=== PATIENT | female | born 1950 ===

== ENCOUNTER 2017-09-01 22:30 | Emergency (ER) | payer MEDICARE ==
[2017-09-01 22:30] VITALS: BMI 32.5
--- NOTE | 2017-09-01 23:49 | C.PDOC ---
History Of Present Illness 67 year old female presents to the ED c/o cough, fever, chills and post tussive chest pain associated with a fever that started yesterday. Patient has a history of right mastectomy and recent biopsy of her left lung. Patient is speaking in complete sentences, denies any nausea, vomit, diarrhea, abdominal pain, recent travel. Time Seen by Provider: 09/01/17 23:49 Chief Complaint (Nursing): Chest Pain History Per: Patient History/Exam Limitations: no limitations Onset/Duration Of Symptoms: Days Current Symptoms Are (Timing): Still Present Context: Other Severity: Moderate Pain Scale Rating Of: 4 Quality: Dull Associated Symptoms: denies: Nausea Modifying Factors: None Exacerbating Factors: None Alleviating Factors: None Recent travel outside of the [place]: No Additional History Per: Patient Past Medical History Reviewed: Historical Data, Nursing Documentation, Vital Signs Vital Signs: Last Vital Signs Temp 98.8 F 09/02/17 02:21 Pulse 79 09/02/17 03:05 Resp 16 09/02/17 03:05 BP 129/69 09/02/17 03:05 Pulse Ox 96 09/02/17 03:05 - Medical History PMH: HTN Denies: Arthritis, CHF, COPD, Hypercholesterolemia, Hypothyroidism, Chronic Kidney Disease, Rheumatoid Arthritis Surgical History: Appendectomy - [facility] Procedures APPL/ADMIN OF AN ADHESION BARRIER SUBSTANCE (02/24/14) C.A.T. SCAN OF THORAX (02/09/14) CLOSED [PERCUTANEOUS] [NEEDLE] BIOPSY OF LUNG (02/09/14) DESTROY LOC LUNG LES NEC (02/24/14) EXCISION OF RIGHT HIP JOINT, OPEN APPROACH (10/20/15) FIBER-OPTIC BRONCHOSCOPY (02/24/14) INJECT STEROID (03/04/15) INJECTION INTO JOINT (04/21/15) RADICAL EXCIS SKIN LES (01/04/15) REPLACEMENT OF RIGHT HIP JOINT WITH SYNTH SUB, OPEN APPROACH (10/20/15) SIMP EXC LYMPH STRUC NEC (02/24/14) TRANSFUSE NONAUT RED BLOOD CELLS IN PERIPH VEIN, PERC (10/20/15) X-RAY NEC AND NOS (04/21/15) Family History: States: Unknown Family Hx - Social History Hx Alcohol Use: No Hx Substance Use: No Review Of Systems Constitutional: Positive for: Fever, Chills Cardiovascular: Positive for: Chest Pain Respiratory: Positive for: Cough Gastrointestinal: Negative for: Nausea, Vomiting, Abdominal Pain Genitourinary: Negative for: Dysuria Musculoskeletal: Negative for: Back Pain Skin: Negative for: Rash Neurological: Negative for: Weakness, Numbness, Headache Psych: Negative for: Anxiety Physical Exam - Physical Exam Appears: Non-toxic, No Acute Distress Skin: Warm, Dry Head: Normacephalic Eye(s): bilateral: Normal Inspection Nose: No Discharge, No Deformity Oral Mucosa: Moist Neck: Normal ROM, Supple Chest: Symmetrical, Other (right mastectomy scar) Cardiovascular: Rhythm Regular, No Murmur Respiratory: No Rales, Rhonchi (B/L scattered), No Wheezing Gastrointestinal/Abdominal: Soft, No Tenderness, No Guarding, No Rebound Back: Normal Inspection Extremity: No Tenderness, No Deformity, No Swelling Extremity: Bilateral: Atraumatic Neurological/Psych: Oriented x3, Normal Speech Gait: Steady ED Course And Treatment - Laboratory Results Result Diagrams: 09/02/17 00:48 09/02/17 00:48 O2 Sat by Pulse Oximetry: 96 (On RA) Pulse Ox Interpretation: Normal Progress Note: Plan: -VBG. -CT chest. -EKG. -IV fluids. -Blood culture. - Influenza A B. -UA Reevaluation Time: 03:05 Reassessment Condition: Improved Disposition Counseled Patient/Family Regarding: Studies Performed, Diagnosis, Need For Followup - Disposition Referrals: Berhane Duggan MD [Staff Provider] - Disposition: HOME/ ROUTINE Disposition Time: 23:49 Condition: FAIR Additional Instructions: Please return if symptoms recur Prescriptions: Azithromycin [Zithromax Tri-Sabas] 500 mg PO DAILY #3 tab Benzonatate [Tessalon Perles] 100 mg PO TID PRN #20 sgl PRN Reason: Cough Oseltamivir Phosphate [Tamiflu] 75 mg PO BID #10 capsule Instructions: Upper Respiratory Infection (ED) Forms: [facility] (Nicaraguan) - Clinical Impression Clinical Impression: URI (upper respiratory infection) - Scribe Statement The provider has reviewed the documentation as recorded by the Scribe Braden Zelaya All medical record entries made by the Scribe were at my direction and personally dictated by me. I have reviewed the chart and agree that the record accurately reflects my personal performance of the history, physical exam, medical decision making, and the department course for this patient. I have also personally directed, reviewed, and agree with the discharge instructions and disposition.
[2017-09-02] MEDS ORDERED: Sodium Chloride 0.9% 1,000 ML IV SCH (00:30)
[2017-09-02 00:45] LABS: VENOUS BLOOD GAS BASE EXCESS 10.5 mmol/L (0.0-2.0); VENOUS BLOOD GAS PCO2 45 mmHg (40-60); VENOUS BLOOD GAS PO2 48 mm/Hg (30-55)
[2017-09-02] MEDS ORDERED: Sodium Chloride 0.9% 1,000 ML ONE (00:46)
[2017-09-02 00:51] LABS: BASO % 0.5 % (0.0-2.0); EOS % 0.4 % (0.0-4.0); HEMOGLOBIN 12.3 g/dL (11.0-16.0); LYMPH # 1.3 K/uL (1.0-4.3); LYMPH % 20.1 % (20.0-40.0); MEAN CELL VOLUME 86.5 fL (81.0-99.0); MEAN CORPUSCULAR HEMOGLOBIN 29.4 pg (27.0-31.0); MEAN PLATELET VOLUME 8.3 fL (7.2-11.7); MONO # 0.4 K/uL (0.0-0.8); MONO % 6.7 % (0.0-10.0); NEUT # 4.6 K/uL (1.8-7.0); NEUT % 72.3 % (50.0-75.0); NRBC % 0.1 % (0.0-2.0); RBC 4.17 Mil/uL (3.80-5.20); WHITE BLOOD COUNT 6.4 K/uL (4.8-10.8)
[2017-09-02 00:59] LABS: SQUAMOUS EPITHIAL 4 /hpf (0-5); URINE BILIRUBIN NEGATIVE (NEGATIVE); URINE BLOOD 1+ (NEGATIVE); URINE CLARITY Hazy (Clear); URINE COLOR Yellow (YELLOW); URINE GLUCOSE (UA) NORMAL (Normal); URINE LEUKOCYTE ESTERASE NEG Leu/uL (Negative); URINE NITRATE NEGATIVE (NEGATIVE); URINE PROTEIN NEGATIVE (NEGATIVE); URINE UROBILINOGEN NORMAL mg/dL (0.2-1.0)
[2017-09-02 01:05] LABS: ALBUMIN 3.7 g/dL (3.5-5.0); CALCIUM 8.7 mg/dl (8.6-10.4)
[2017-09-02 01:07] LABS: INR 1.1; PROTHROMBIN TIME 11.8 SECONDS (9.7-12.2)
[2017-09-02 01:48] VITALS: RESP 16
[2017-09-02 02:21] VITALS: TEMP 98.8
[2017-09-02] MEDS ORDERED: Potassium Chloride 10 mEq ER Tab PO STA (02:30)
--- NOTE | 2017-09-02 02:30 | CT ---
EXAM: CT Chest Without Intravenous Contrast EXAM DATE/TIME: 09/02/2017 12:22 AM CLINICAL HISTORY: 67 years old, female; Signs and symptoms; Cough; Symptoms not specified; Prior surgery; Surgery date: 6+ months; Surgery type: Right mastectomy; Additional info: R mastectomy, S/P bx l lung, cough, cp TECHNIQUE: Axial computed tomography images of the chest without intravenous contrast. All CT scans at this facility use one or more dose reduction techniques, viz.: automated exposure control; ma/kV adjustment per patient size (including targeted exams where dose is matched to indication; i.e. head); or iterative reconstruction technique. Coronal and sagittal reformatted images were created and reviewed. COMPARISON: CR - CHEST TWO VIEWS (PA/LAT) 2015-10-11 10:59 FINDINGS: Status post right mastectomy. There is a 2.1 x 3.1 cm pleural-based mass in the right lower lung incompletely characterized secondary to lack of intravenous contrast. There is a lobulated 10 x 7 mm nodule in the right upper lung image 21 as well as a lobulated 10 x 9 mm left lower lung nodule. There is a cluster of micronodules in the anterior right upper lung image 56. Linear consolidation in the right upper lung suggestive of scarring or platelike atelectasis. No aortic aneurysm. No pleural or pericardial effussions. Hypoattenuating hepatic lesions incompletely imaged and incompletely characterized on this study. There is a 2 cm cystic mass in the pancreatic body. Per prior report, this lesion has been biopsied. Left parapelvic cyst versus fullness of collecting system. Evaluation is limited. IMPRESSION: Right lower lung pleural based mass. Lobulated nodules right upper lung and left lower lung. I would first recommend correlation with prior study (not provided) before recommendations made with regards to followup imaging and/or biopsy. Cluster of micronodules right midlung that could be chronic versus representing a developing infectious or inflammatory process.
[2017-09-02] MEDS ORDERED: Potassium Chloride 20 mEq ER Tab PO ONE (02:37)
[2017-09-02 02:45] VITALS: O2SAT 96
[2017-09-02 03:05] VITALS: BP 129/69; PULSE 79
--- NOTE | 2017-09-03 14:35 | CARD ---
APPROVED REPORT EKG Measurement Heart [id number] <Conclusion> Normal sinus rhythm Nonspecific ST abnormality Abnormal ECG
== END 2017-09-02 03:26 | disposition home or self-care (01) ==
LOC: C.ER 22:30
DX: J06.9 Acute upper respiratory infection, unspecified (principal); E87.6 Hypokalemia
CPT/HCPCS: 71250; 80053; 81001; 82803; 85025; 85610; 85730; 87040; 87804; 93005; 99285; J7040

== ENCOUNTER 2018-05-01 11:02 | Inpatient (IN) | payer MEDICARE ==
[2018-05-01 11:02] VITALS: BMI 32.5
[2018-05-01] MEDS ORDERED: Sodium Chloride 0.9% 1,000 ML IV ONE (11:47)
[2018-05-01 12:02] LABS: BASO % 0.5 % (0.0-2.0); EOS % 0.7 % (0.0-4.0); LYMPH # 0.8 K/uL (1.0-4.3); LYMPH % 13.1 % (20.0-40.0); MEAN CORPUSCULAR HGB CONC 33.5 g/dL (33.0-37.0); MEAN PLATELET VOLUME 7.7 fL (7.2-11.7); MONO # 0.5 K/uL (0.0-0.8); MONO % 8.8 % (0.0-10.0); NEUT # 4.6 K/uL (1.8-7.0); NEUT % 76.9 % (50.0-75.0); NRBC % 0.4 % (0.0-2.0); RBC 2.96 Mil/uL (3.80-5.20); RED CELL DISTRIBUTION WIDTH 19.1 % (11.5-14.5)
[2018-05-01 12:04] LABS: HEMOGLOBIN 8.9 g/dL (11.0-16.0); MEAN CELL VOLUME 89.6 fL (81.0-99.0)
[2018-05-01 12:20] LABS: ALB/GLOB RATIO 1.3 (1.0-2.1); ALBUMIN 3.7 g/dL (3.5-5.0); CALCIUM 9.4 mg/dl (8.6-10.4)
--- NOTE | 2018-05-01 12:22 | C.PDOC ---
History Of Present Illness 67 year old female, whose PMHx includes metastatic lung cancer, presents to the ED after being referred by her graphic engineer/oncologist for admission. Patient underwent her most recent chemotherapy session one week ago and was found to have elevated renal function and was referred for admission. She denies fever, chills, or any other symptoms at this time. Time Seen by Provider: 05/01/18 11:32 Chief Complaint (Nursing): Medical Clearance History Per: Patient History/Exam Limitations: no limitations Onset/Duration Of Symptoms: Days Current Symptoms Are (Timing): Still Present Severity: Mild Additional History Per: Patient Past Medical History Reviewed: Historical Data, Nursing Documentation, Vital Signs Vital Signs: Last Vital Signs Temp 99.1 F 05/01/18 11:23 Pulse 89 05/01/18 11:23 Resp 17 05/01/18 11:23 BP 104/70 05/01/18 11:23 Pulse Ox 96 05/01/18 11:23 - Medical History PMH: HTN Denies: Chronic Kidney Disease, Rheumatoid Arthritis Surgical History: Appendectomy - [facility] Procedures APPL/ADMIN OF AN ADHESION BARRIER SUBSTANCE (02/24/14) C.A.T. SCAN OF THORAX (02/09/14) CLOSED [PERCUTANEOUS] [NEEDLE] BIOPSY OF LUNG (02/09/14) DESTROY LOC LUNG LES NEC (02/24/14) EXCISION OF RIGHT HIP JOINT, OPEN APPROACH (10/20/15) FIBER-OPTIC BRONCHOSCOPY (02/24/14) INJECT STEROID (03/04/15) INJECTION INTO JOINT (04/21/15) RADICAL EXCIS SKIN LES (01/04/15) REPLACEMENT OF RIGHT HIP JOINT WITH SYNTH SUB, OPEN APPROACH (10/20/15) SIMP EXC LYMPH STRUC NEC (02/24/14) TRANSFUSE NONAUT RED BLOOD CELLS IN PERIPH VEIN, PERC (10/20/15) X-RAY NEC AND NOS (04/21/15) Family History: States: Unknown Family Hx - Social History Hx Alcohol Use: No Hx Substance Use: No - Immunization History Hx Tetanus Toxoid Vaccination: No Hx Influenza Vaccination: Yes Hx Pneumococcal Vaccination: Yes Review Of Systems Constitutional: Negative for: Fever, Chills Respiratory: Negative for: Shortness of Breath Neurological: Positive for: Weakness Physical Exam - Physical Exam Appears: Non-toxic, No Acute Distress Skin: Normal Color, Warm, Dry Head: Atraumatic, Normacephalic Eye(s): bilateral: Normal Inspection Oral Mucosa: Moist Neck: Supple Chest: Symmetrical, No Deformity, No Tenderness Cardiovascular: Rhythm Regular, No Murmur Respiratory: Normal Breath Sounds, No Rales, No Rhonchi, No Wheezing Extremity: Normal ROM, Capillary Refill (less than 2 seconds ) Neurological/Psych: Oriented x3, Normal Speech, Normal Cognition Gait: Steady ED Course And Treatment - Laboratory Results Result Diagrams: 05/01/18 11:57 05/01/18 11:57 Lab Interpretation: No Acute Changes O2 Sat by Pulse Oximetry: 96 (on RA) Pulse Ox Interpretation: Normal - Other Rad No standard instances X-Ray: Viewed By Me, Read By Radiologist Interpretation: FINDINGS: LUNGS: Right MediPort in situ by an apparent int ernal jugular approach with the tip terminating at the region of the distal superior cava. Limited linear atelectasis or fibrosis seen in the interval at the left base with no alveolitis bilaterally. Rounded density at the right base may reflect pulmonary or pleural mass. Clinically correlate further. Follow-up chest CT recommended. Postoperative change identified right apex. PLEURA: No significant pleural effusion identified. No pneumothorax apparent. CARDIOVASCULAR: Normal. OSSEOUS STRUCTURES: No significant abnormalities. VISUALIZED UPPER ABDOMEN: Normal. OTHER FINDINGS: None. IMPRESSION: Limited linear atelectasis left base with rounded mass questioned at lateral right s ubpleural space. Consider follow-up chest 2 contrast for added characterization. Postop changes right apex. Progress Note: Bloodwork, urinalysis, CXR ordered and reviewed. IV Fluids given. Reassessment Condition: Unchanged - Physician Consult Information Physician Contacted: Britany Gallego Outcome Of Conversation: admit Disposition Discussed With : Britany Gallego Doctor Will See Patient In The: Hospital Counseled Patient/Family Regarding: Studies Performed, Diagnosis - Disposition Disposition: HOSPITALIZED Disposition Time: 14:00 Condition: STABLE - POA Present On Arrival: None - Clinical Impression Clinical Impression: Hx of breast cancer, Renal failure (ARF), acute on chronic - PA / HEAVY MACHINERY OPERATOR / Resident Statement MD/DO has reviewed & agrees with the documentation as recorded. - Scribe Statement The provider has reviewed the documentation as recorded by the Scribe (Camille Jacome) All medical record entries made by the Scribe were at my direction and personally dictated by me. I have reviewed the chart and agree that the record accurately reflects my personal performance of the history, physical exam, medical decision making, and the department course for this patient. I have also personally directed, reviewed, and agree with the discharge instructions and disposition. Decision To Admit - Pt Status Changed To: Hospital Disposition Of: Inpatient - Admit Certification Admit to Inpatient:: After my assessment, the patient will require hospitalization for at least two midnights. This is because of the severity of symptoms shown, intensity of services needed, and/or the medical risk in this patient being treated as an outpatient. - InPatient: Physician Admission Certification: I certify that this patient requires 2 or more midnights of care for the following reason:: Renal Failure. Ca Lung - . Bed Request Type: Regular Admitting Physician: Britany Gallego Patient Diagnosis: Hx of breast cancer, Renal failure (ARF), acute on chronic
--- NOTE | 2018-05-01 12:23 | RAD ---
Date of service: 05/01/2018 HISTORY: SOB COMPARISON: Chest radiograph 05/03/2016. TECHNIQUE: Chest PA and lateral FINDINGS: LUNGS: Right MediPort in situ by an apparent internal jugular approach with the tip terminating at the region of the distal superior cava. Limited linear atelectasis or fibrosis seen in the interval at the left base with no alveolitis bilaterally. Rounded density at the right base may reflect pulmonary or pleural mass. Clinically correlate further. Follow-up chest CT recommended. Postoperative change identified right apex. PLEURA: No significant pleural effusion identified. No pneumothorax apparent. CARDIOVASCULAR: Normal. OSSEOUS STRUCTURES: No significant abnormalities. VISUALIZED UPPER ABDOMEN: Normal. OTHER FINDINGS: None. IMPRESSION: Limited linear atelectasis left base with rounded mass questioned at lateral right subpleural space. Consider follow-up chest 2 contrast for added characterization. Postop changes right apex.
[2018-05-01 13:05] LABS: SQUAMOUS EPITHIAL 29 /hpf (0-5); URINE BACTERIA OCC (<OCC); URINE BILIRUBIN NEGATIVE (NEGATIVE); URINE BLOOD NEGATIVE (NEGATIVE); URINE CLARITY Hazy (Clear); URINE COLOR Yellow (YELLOW); URINE GLUCOSE (UA) NORMAL (Normal); URINE LEUKOCYTE ESTERASE 3+ Leu/uL (Negative); URINE PROTEIN NEGATIVE (NEGATIVE); URINE UROBILINOGEN NORMAL mg/dL (0.2-1.0)
--- NOTE | 2018-05-01 14:32 | CP.PCM.HP ---
<Lionel Calero - Last Filed: 05/01/18 20:11> History of Present Illness - History of Present Illness History of Present Illness: Lionel Calero PGY-1, H&P for hospitalist CC: sent in by heme/onc for SAGE This is a 67 year old Dutch-speaking female with PMH of PE (on Xarelto 20 mg PO daily), stage 4 breast cancer with mets to the lung, HTN, DM who was sent to the hospital for admission for worsening SAGE noted on outpatient labs. Pt is a poor historian. Pt reports that she has had increased urinary frequency for the past 2 days described as 4-5 times per day. Pt also reports dry cough with shortness of breath on exertion, described as needing to stop and catch her breath after walking 2 blocks. Pt also reports decreased po intake recently, described as decreased appetite. Pt states that she had a temperature of 100.1 and 100.3 on Sunday and Sunday, respectively, which responded to Tylenol. Pt denies chills, chest pain, pleuritic chest pain, abdominal pain, n/v/d, dysuriaor burning sensation, new numbness or tingling (pt has tingling of lower extremities due to chemotherapy), back pain, hematuria, hematochezia, melena, sick contacts. PMD: Berhane Duggan Heme/Onc: Usha Duggan As per Heme/Onc, pt had Cr increase to 1.2 on 04/23 with Cr of 3.5 yesterday (04/30). Pt has been having anemia (low 8s, high 9s for the past few weeks. Cancer hx: Pt diagnosed with Her2+ ER+ breast cancer in 1994, and was treated with right sided mastectomy and chemotherapy. In remission for 20 years. Diagnosed with lung nodule, which was biopsied and showed Her2+, ER+ breast ca. Pt is on Trastuzumab, Pertuzumab and Taxol. Last had taxol on 04/18, not given last week due to low grade fevers. PMH: PMH of PE (on Xarelto 20 mg PO daily), HTN, DM, stage 4 breast cancer with mets to the lung (Her2+, ER+) PSH: Right breast mastectomy 1994, Right lung biopsy 2-3 years ago FHx: daughter due to sarcoma in her 30s, Brother of unknown cancer Meds: Tradjenta 5mg PO QD, Dexamethasone 8 mg PO BID, Xarelto 20 mg PO daily (last dose taken today, with instructions to discontinue as per heme/onc), Losartan/HCTZ 100mg/25mg PO daily, KCl 20 meq PO daily, Atenolol 25 mg PO daily, Ondansendratn HCL 4 mg PO as needed for chemo-related nausea/vomiting, Prochlor 10 mg PO as needed, Lorazepam 0.5 mg PO as need, Loperamide 2 mg PO as needed. Allx: see SEP. However, none as per pt. Social hx: denies history of tobacco use, denies history of etoh use, denies illicit drug. 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 Present on Admission - Present on Admission Any Indicators Present on Admission: Yes History of DVT/PE: Yes Review of Systems - Review of Systems All systems: reviewed and no additional remarkable complaints except (as per HPI) Past Patient History - Infectious Disease Hx of Infectious Diseases: None - Tetanus Immunizations Tetanus Immunization: Unknown - Past Medical History & Family History Past Medical History?: Yes - Past Social History Smoking Status: Never Smoked - CARDIAC Hx Congestive Heart Failure: No Hx Hypercholesterolemia: No Hx Hypertension: Yes - PULMONARY Hx Chronic Obstructive Pulmonary Disease (COPD): No - NEUROLOGICAL Hx Neurological Disorder: No HX Cerebrovascular Accident: No - HEENT Hx HEENT Problems: No - RENAL Hx Chronic Kidney Disease: No - ENDOCRINE/METABOLIC Hx Hypothyroidism: No - HEMATOLOGICAL/ONCOLOGICAL Hx Blood Disorders: Yes Hx Blood Transfusions: Yes (POST OP 20 YRS AGO ) Hx Blood Transfusion Reaction: No Hx Cancer: Yes (BREAST CA) Hx Chemotherapy: Yes Hx Metastesis: Yes Other/Comment: LUNG CANCER - INTEGUMENTARY Hx Dermatological Problems: No - MUSCULOSKELETAL/RHEUMATOLOGICAL Hx Arthritis: No Hx Rheumatoid Arthritis: No - GASTROINTESTINAL Hx Gastrointestinal Disorders: No - GENITOURINARY/GYNECOLOGICAL Hx Genitourinary Disorders: No - PSYCHIATRIC Hx Substance Use: No - SURGICAL HISTORY Hx Appendectomy: Yes - ANESTHESIA Hx Anesthesia: Yes Hx Anesthesia Reactions: No Hx Malignant Hyperthermia: No Meds Allergies/Adverse Reactions: Allergies Allergy/AdvReac Type Severity Reaction Status Date / Time silver Allergy RASH Verified 05/01/18 11:28 [From Tegaderm AG Mesh] iodixanol [From Visipaque] AdvReac RASH Verified 05/01/18 11:28 chlora Allergy Intermediate RASH Uncoded 05/01/18 11:28 contrast Allergy RASH Uncoded 05/01/18 11:28 Physical Exam - Constitutional Appears: Non-toxic, No Acute Distress - Head Exam Head Exam: NORMAL INSPECTION (hairless due to chemotherapy/cutting), NORMOCEPHALIC - Eye Exam Eye Exam: EOMI, Normal appearance Additional comments: (+) conjunctival pallor - ENT Exam ENT Exam: Mucous Membranes Moist, Normal Exam - Neck Exam Neck exam: Positive for: Normal Inspection - Respiratory Exam Respiratory Exam: Clear to Auscultation Bilateral, NORMAL BREATHING PATTERN. absent: Rales, Rhonchi, Wheezes, Respiratory Distress - Cardiovascular Exam Cardiovascular Exam: REGULAR RHYTHM, +S1, +S2 - GI/Abdominal Exam GI & Abdominal Exam: Normal Bowel Sounds, Soft. absent: Diminished Bowel Sounds, Distended, Firm, Guarding, Tenderness - Extremities Exam Extremities exam: Positive for: normal capillary refill, normal inspection, pedal edema (trace nonpitting edema), pedal pulses present. Negative for: calf tenderness, tenderness - Back Exam Back exam: NORMAL INSPECTION. absent: CVA tenderness (L), CVA tenderness (R) - Neurological Exam Neurological exam: Alert, CN II-XII Intact, Normal Gait, Oriented x3 - Psychiatric Exam Psychiatric exam: Normal Affect, Normal Mood - Skin Skin Exam: Dry, Normal Color, Warm Results - Vital Signs Recent Vital Signs: Last Vital Signs Temp 99.1 F 05/01/18 11:23 Pulse 89 05/01/18 11:23 Resp 17 05/01/18 11:23 BP 104/70 05/01/18 11:23 Pulse Ox 96 05/01/18 12:25 - Labs Result Diagrams: 05/01/18 16:59 05/01/18 11:57 Labs: Laboratory Results - last 24 hr 05/01/18 05/01/18 05/01/18 11:57 11:57 12:43 WBC 6.0 RBC 2.96 L Hgb 8.9 L D Hct 26.5 L MCV 89.6 D MCH 30.0 MCHC 33.5 RDW 19.1 H Plt Count 294 MPV 7.7 Neut % (Auto) 76.9 H Lymph % (Auto) 13.1 L [place] % (Auto) 8.8 Eos % (Auto) 0.7 Baso % (Auto) 0.5 Neut # (Auto) 4.6 Lymph # (Auto) 0.8 L [place] # (Auto) 0.5 Eos # (Auto) 0.0 Baso # (Auto) 0.0 Sodium 138 Potassium 4.2 Chloride 98 Carbon Dioxide 25 Anion Gap 19 BUN 36 H Creatinine 4.4 H Est GFR ( Amer) 12 Est GFR (Non-Af Amer) 10 Random Glucose 131 H Calcium 9.4 Total Bilirubin 0.6 AST 22 ALT 26 Alkaline Phosphatase 61 Total Protein 6.7 Albumin 3.7 Globulin 3.0 Albumin/Globulin Ratio 1.3 Urine Color Yellow Urine Clarity Hazy Urine pH 5.0 Ur Specific [place] 1.006 Urine Protein Negative Urine Glucose (UA) Normal Urine Ketones Negative Urine Blood Negative Urine Nitrate Negative Urine Bilirubin Negative Urine Urobilinogen Normal Ur Leukocyte Esterase 3+ H Urine WBC (Auto) 32 H Urine RBC (Auto) 9 H Ur Squamous Epith Cells 29 H Urine Bacteria Occ H Assessment & Plan - Assessment and Plan (Free Text) Assessment: This is a 67 year old Dutch-speaking female with PMH of PE (on Xarelto 20 mg PO daily), stage 4 breast cancer with mets to the lung, HTN, DM who was sent to the hospital for admission for worsening SAGE noted on outpatient labs. Noted to have UTI while outpatient, pt complaining of urinary frequency with low grade fevers. Plan: SAGE - Creatinine noted to be 4.4 - NS IVF at 100 - avoid nephrotoxic medications wherever possible - hold home losartan/HCTZ 100/25 mg PO daily, and concomitant hold KCl 20 meq - f/u urine creatinine, sodium - f/u bence nj protein, immunofixation proteins - f/u nephrology, Dr. Kim, recs UTI - UA shows UTI, but contamination is likely - f/u repeat clean catch UA, Urine culture and sensitivity - renally dose Rocephin 1 g IVPB daily Low grade fevers - f/u Blood culture x 2, sputum culture, urine culture - pt already on rocephin Normocytic Anemia - pt has had hgb in high 8s and low 9s as per pt's heme/onc - Hgb is 8.9 x 2 (5 hours apart) - f/u iron, ferritin, TIBC, %sat, folate - FOBT x2 - no indication for transfusion at this time - f/u CBC in am Stage 4 breast cancer with mets to the lung - f/u heme/onc recs as per Dr. Duggan - CXR shows limited linear atelectasis left base with rounded mass questioned at lateral right subpleural space. Postop changes to right apex. - continue home decadron 8 mg PO BID Hx of Hypertension - continue home Atenolol 25 mg PO daily - hold Losatran/HTCZ due to renal injury Hx of pumonary embolism - will renally dose home Xarelto 20 mg PO daily to Xarelto 15 mg PO daily for treatment of PE PPX/Diet - SCDs, chemical VTE ppx contraindicated due to pt being on xarelto - pepcid - xarelto 15 mg PO daily - renal diet, mod carb, heart healthy Case was reviewed and discussed with attending physician, Dr. Lashonda Calero PGY-1 <Britany Gallego V - Last Filed: 05/01/18 22:50> Results - Vital Signs Recent Vital Signs: Last Vital Signs Temp 98.8 F 05/01/18 17:04 Pulse 87 05/01/18 17:04 Resp 20 05/01/18 17:04 BP 94/64 L 05/01/18 17:04 Pulse Ox 96 05/01/18 17:04 - Labs Result Diagrams: 05/01/18 16:59 05/01/18 11:57 Labs: Laboratory Results - last 24 hr 05/01/18 05/01/18 05/01/18 11:57 11:57 12:43 WBC 6.0 RBC 2.96 L Hgb 8.9 L D Hct 26.5 L MCV 89.6 D MCH 30.0 MCHC 33.5 RDW 19.1 H Plt Count 294 MPV 7.7 Neut % (Auto) 76.9 H Lymph % (Auto) 13.1 L [place] % (Auto) 8.8 Eos % (Auto) 0.7 Baso % (Auto) 0.5 Neut # (Auto) 4.6 Lymph # (Auto) 0.8 L [place] # (Auto) 0.5 Eos # (Auto) 0.0 Baso # (Auto) 0.0 Sodium 138 Potassium 4.2 Chloride 98 Carbon Dioxide 25 Anion Gap 19 BUN 36 H Creatinine 4.4 H Est GFR ( Amer) 12 Est GFR (Non-Af Amer) 10 Random Glucose 131 H Uric Acid Calcium 9.4 Iron TIBC % Saturation Ferritin Total Bilirubin 0.6 AST 22 ALT 26 Alkaline Phosphatase 61 Total Creatine Kinase Total Protein 6.7 Albumin 3.7 Globulin 3.0 Albumin/Globulin Ratio 1.3 Folate Urine Color Yellow Urine Clarity Hazy Urine pH 5.0 Ur Specific [place] 1.006 Urine Protein Negative Urine Glucose (UA) Normal Urine Ketones Negative Urine Blood Negative Urine Nitrate Negative Urine Bilirubin Negative Urine Urobilinogen Normal Ur Leukocyte Esterase 3+ H Urine WBC (Auto) 32 H Urine RBC (Auto) 9 H Ur Squamous Epith Cells 29 H Urine Bacteria Occ H Ur Random Creatinine Ur Random Sodium 05/01/18 05/01/18 05/01/18 16:59 16:59 16:59 WBC 5.1 RBC 3.00 L Hgb 8.9 L Hct 26.9 L MCV 89.6 MCH 29.6 MCHC 33.0 RDW 18.7 H Plt Count 308 MPV 7.9 Neut % (Auto) 83.7 H Lymph % (Auto) 13.9 L [place] % (Auto) 2.3 Eos % (Auto) 0.0 Baso % (Auto) 0.1 Neut # (Auto) 4.3 Lymph # (Auto) 0.7 L [place] # (Auto) 0.1 Eos # (Auto) 0.0 Baso # (Auto) 0.0 Sodium Potassium Chloride Carbon Dioxide Anion Gap BUN Creatinine Est GFR ( Amer) Est GFR (Non-Af Amer) Random Glucose Uric Acid Calcium Iron 29 L TIBC 274 % Saturation 11 L Ferritin 91.1 Total Bilirubin AST ALT Alkaline Phosphatase Total Creatine Kinase Total Protein Albumin Globulin Albumin/Globulin Ratio Folate 10.8 Urine Color Urine Clarity Urine pH Ur Specific [place] Urine Protein Urine Glucose (UA) Urine Ketones Urine Blood Urine Nitrate Urine Bilirubin Urine Urobilinogen Ur Leukocyte Esterase Urine WBC (Auto) Urine RBC (Auto) Ur Squamous Epith Cells Urine Bacteria Ur Random Creatinine Ur Random Sodium 05/01/18 05/01/18 05/01/18 18:14 21:43 21:43 WBC RBC Hgb Hct MCV MCH MCHC RDW Plt Count MPV Neut % (Auto) Lymph % (Auto) [place] % (Auto) Eos % (Auto) Baso % (Auto) Neut # (Auto) Lymph # (Auto) [place] # (Auto) Eos # (Auto) Baso # (Auto) Sodium Potassium Chloride Carbon Dioxide Anion Gap BUN Creatinine Est GFR ( Amer) Est GFR (Non-Af Amer) Random Glucose Uric Acid 9.7 H Calcium Iron TIBC % Saturation Ferritin Total Bilirubin AST ALT Alkaline Phosphatase Total Creatine Kinase 73 Total Protein Albumin Globulin Albumin/Globulin Ratio Folate Urine Color Straw Urine Clarity Clear Urine pH 5.0 Ur Specific [place] 1.004 Urine Protein Negative Urine Glucose (UA) Normal Urine Ketones Negative Urine Blood Negative Urine Nitrate Negative Urine Bilirubin Negative Urine Urobilinogen Normal Ur Leukocyte Esterase Neg Urine WBC (Auto) 3 Urine RBC (Auto) < 1 Ur Squamous Epith Cells < 1 Urine Bacteria Rare Ur Random Creatinine 55.3 Ur Random Sodium 25 Attending/Attestation - Attestation I have personally seen and examined this patient.: Yes I have fully participated in the care of the patient.: Yes I have reviewed all pertinent clinical information: Yes Notes (Text): Patient seen, examined, and case discussed with medical photographer. Discussed admitting orders with resident at time of admission. Resident has reached out to patient's heme-oncology who does not come here. Creatinine adeline from 1.2 to 3.5 yesterday and 4.0 today in the emergency room. Patient's arb/diuretic held on admission. Nephrology is on board. Will start iv fluids. Patient has been anemic recently per hematology. Patient does not any black stool nor BRBPR. Patient is on chemotherapy; last received on week ago. Patient advised to stop blood thinner by hem oncology unclear if due to renal function or not. We have renally dose Xarelto 15mg one a day. Patient had recently take Levofloxacin for outpatient symptoms of UTI and started having low grade fevers over the weekend. Will take ua, urine culture, and empiric antibiotic coverage for UTI. This is a 67 year old Dutch-speaking female with PMH of PE (on Xarelto 20 mg PO daily), stage 4 breast cancer with mets to the lung, HTN, DM who was sent to the hospital for admission for worsening SAGE noted on outpatient labs. Noted to have UTI while outpatient, pt complaining of urinary frequency with low grade fevers. Plan: SAGE - Creatinine noted to be 4.4 - NS IVF at 100 - avoid nephrotoxic medications wherever possible - hold home losartan/HCTZ 100/25 mg PO daily, and concomitant hold KCl 20 meq - f/u urine creatinine, sodium - f/u bence nj protein, immunofixation proteins - f/u nephrology, Dr. Kim, recs UTI - UA shows UTI, but contamination is likely - f/u repeat clean catch UA, Urine culture and sensitivity - renally dose Rocephin 1 g IVPB daily Low grade fevers - f/u Blood culture x 2, sputum culture, urine culture - pt already on rocephin Normocytic Anemia - pt has had hgb in high 8s and low 9s as per pt's heme/onc - Hgb is 8.9 x 2 (5 hours apart) - f/u iron, ferritin, TIBC, %sat, folate - FOBT x2 - no indication for transfusion at this time - f/u CBC in am Stage 4 breast cancer with mets to the lung - f/u heme/onc recs as per Dr. Duggan - CXR shows limited linear atelectasis left base with rounded mass questioned at lateral right subpleural space. Postop changes to right apex. - continue home decadron 8 mg PO BID Hx of Hypertension - continue home Atenolol 25 mg PO daily - hold Losatran/HTCZ due to renal injury Hx of pumonary embolism - will renally dose home Xarelto 20 mg PO daily to Xarelto 15 mg PO daily for treatment of PE PPX/Diet - SCDs, chemical VTE ppx contraindicated due to pt being on xarelto - pepcid 20mg PO daily - xarelto 15 mg PO daily - renal diet, mod carb, heart healthy
--- NOTE | 2018-05-01 16:33 | CP.PCM.CON ---
History of Present Illness - History of Present Illness History of Present Illness: Nephrology Consultation Note: Assessment: critical SAGE likely due to dehydration, pre-renal and ATN DM, HTN obesity metastatic breast CA HAGMA with superimposed metabolic alkalosis anemia Plan No acute need for renal replacement therapy at this time. Maintain hemodynamics stable. Avoid hypotension. hold ACEI/ARB due to SAGE Monitor Input/Output, daily weights and renal function with basic metabolic panel IVF as NS @ 100 ml/hr anemia management as per primary team/heme SAGE work up as ordered Dose meds/antibiotics for reduced GFR. Avoid fleets enema/magnesium based laxatives. Avoid nephrotoxins/NSAIDs/ iodinated contrast (unless needed emergently) Glycemic control Further work up for as per primary team Thanks for allowing me to participate in care of your patient. will follow with you. Please call if any Qs. had d/w team Dr Pal Kim Office: [phone] Chief Complaint; kidney problem HPI: Pt is a 67 y/o F with hx of hypertension, DM, metastatic to lung with breast CA as primary malignancy on chemotherapy (taxol, Herceptin and Pretuzomab) was sent for abnormal kidney function renal consult for SAGE abi anglin. she received chemotherapy few days ago, report ulcer on lip and lack of taste with limited oral food intake. reports 2 episode of dizziness as well. no known renal issues in past she denies chest pain, palpitation, shortness of breath, leg swelling Denies blood or bubbles in urine Denies OTC/herbal meds or NSAIDs No recent iodinated contrast exposure. Noted obvious episodes of low BP 104/70. ROS: Constitutional Symptoms: Denies fever. No chills. No Recent Weight Changes Eyes: denies change in vision, denies watery eyes, denies double vision Cardiovascular: No chest pain now There is no shortness of breath. No palpi tations. Pulmonary: No shortness of breath no cough. Gastrointestinal: no abdominal pain no nausea. No vomiting. Denies change in bowel habits. Denies Bleeding Genitourinary: No Change in force of strain when urinating. no increase in urinary frequency. No pain while urinating. Denies blood in urine. Dermatological: No Rash or Bruising has lip ulcers. All other negative Physical Examination: General Appearance: Comfortable, in no acute respiratory distress, co-operative . obese Vitals reviewed and noted as below Head; Atraumatic, normocephalic ENT: no ulcers no thrush. Tongue is midline. Oropharynx: no rash has lip ulcer. EYES: Pupils are equal, round and reactive to light accommodation. Eye muscles and extraocular movement intact. Sclera is anicteric. Neck; supple no lymphadenopathy, no thyromegaly or bruit Lungs: Normal respiratory rate/effort. Breath sounds bilateral equal and clear Heart: Normal rate. s1s2 normal. No rub or gallop. Extremities: no edema. No varicose veins Neurological: Patient is alert, awake and oriented to person, place and time. No focal deficit. Strength bilateral appropriate and equal Skin: Warm and dry. Normal turgor. No rash. Palpitation: Normal elasticity for age Abdomen: Abdomen is soft. Bowel sounds +. There is no abdominal tenderness, no guarding/rigidity no organomegaly Psych: normal insight and normal affect/mood MSK: no joint tenderness or swelling. Digits and nails normal, no deformity : kidney or bladder not palpable Labs/imaging/EKG reviewed. Past medical history, past surgical history, family history, social history, allergy reviewed and noted as below Family hx: no hx of CKD. Rest non-contributory Past Patient History - Infectious Disease Hx of Infectious Diseases: None - Tetanus Immunizations Tetanus Immunization: Unknown - Past Medical History & Family History Past Medical History?: Yes - Past Social History Smoking Status: Never Smoked - CARDIAC Hx Congestive Heart Failure: No Hx Hypercholesterolemia: No Hx Hypertension: Yes - PULMONARY Hx Chronic Obstructive Pulmonary Disease (COPD): No - NEUROLOGICAL Hx Neurological Disorder: No HX Cerebrovascular Accident: No - HEENT Hx HEENT Problems: No - RENAL Hx Chronic Kidney Disease: No - ENDOCRINE/METABOLIC Hx Hypothyroidism: No - HEMATOLOGICAL/ONCOLOGICAL Hx Blood Disorders: Yes Hx Blood Transfusions: Yes (POST OP 20 YRS AGO ) Hx Blood Transfusion Reaction: No Hx Cancer: Yes (BREAST CA) Hx Chemotherapy: Yes Hx Metastesis: Yes Other/Comment: LUNG CANCER - INTEGUMENTARY Hx Dermatological Problems: No - MUSCULOSKELETAL/RHEUMATOLOGICAL Hx Arthritis: No Hx Rheumatoid Arthritis: No - GASTROINTESTINAL Hx Gastrointestinal Disorders: No - GENITOURINARY/GYNECOLOGICAL Hx Genitourinary Disorders: No - PSYCHIATRIC Hx Substance Use: No - SURGICAL HISTORY Hx Appendectomy: Yes - ANESTHESIA Hx Anesthesia: Yes Hx Anesthesia Reactions: No Hx Malignant Hyperthermia: No Meds Allergies/Adverse Reactions: Allergies Allergy/AdvReac Type Severity Reaction Status Date / Time silver Allergy RASH Verified 05/01/18 11:28 [From Tegaderm AG Mesh] iodixanol [From Visipaque] AdvReac RASH Verified 05/01/18 11:28 chlora Allergy Intermediate RASH Uncoded 05/01/18 11:28 contrast Allergy RASH Uncoded 05/01/18 11:28 - Medications Medications: Current Medications Sodium Chloride (Sodium Chloride 0.9%) 1,000 mls @ 100 mls/hr IV .Q10H JACY Results - Vital Signs Recent Vital Signs: Last Vital Signs Temp 98.7 F 05/01/18 15:38 Pulse 86 05/01/18 15:38 Resp 18 05/01/18 15:38 BP 108/64 05/01/18 15:38 Pulse Ox 96 05/01/18 15:38 - Labs Result Diagrams: 05/01/18 11:57 05/01/18 11:57 Labs: Laboratory Results - last 24 hr 05/01/18 05/01/18 05/01/18 11:57 11:57 12:43 WBC 6.0 RBC 2.96 L Hgb 8.9 L D Hct 26.5 L MCV 89.6 D MCH 30.0 MCHC 33.5 RDW 19.1 H Plt Count 294 MPV 7.7 Neut % (Auto) 76.9 H Lymph % (Auto) 13.1 L [place] % (Auto) 8.8 Eos % (Auto) 0.7 Baso % (Auto) 0.5 Neut # (Auto) 4.6 Lymph # (Auto) 0.8 L [place] # (Auto) 0.5 Eos # (Auto) 0.0 Baso # (Auto) 0.0 Sodium 138 Potassium 4.2 Chloride 98 Carbon Dioxide 25 Anion Gap 19 BUN 36 H Creatinine 4.4 H Est GFR ( Amer) 12 Est GFR (Non-Af Amer) 10 Random Glucose 131 H Calcium 9.4 Total Bilirubin 0.6 AST 22 ALT 26 Alkaline Phosphatase 61 Total Protein 6.7 Albumin 3.7 Globulin 3.0 Albumin/Globulin Ratio 1.3 Urine Color Yellow Urine Clarity Hazy Urine pH 5.0 Ur Specific [place] 1.006 Urine Protein Negative Urine Glucose (UA) Normal Urine Ketones Negative Urine Blood Negative Urine Nitrate Negative Urine Bilirubin Negative Urine Urobilinogen Normal Ur Leukocyte Esterase 3+ H Urine WBC (Auto) 32 H Urine RBC (Auto) 9 H Ur Squamous Epith Cells 29 H Urine Bacteria Occ H
[2018-05-01 17:16] LABS: BASO % 0.1 % (0.0-2.0); HEMOGLOBIN 8.9 g/dL (11.0-16.0); LYMPH # 0.7 K/uL (1.0-4.3); LYMPH % 13.9 % (20.0-40.0); MEAN CELL VOLUME 89.6 fL (81.0-99.0); MEAN CORPUSCULAR HEMOGLOBIN 29.6 pg (27.0-31.0); MEAN PLATELET VOLUME 7.9 fL (7.2-11.7); MONO # 0.1 K/uL (0.0-0.8); MONO % 2.3 % (0.0-10.0); NEUT # 4.3 K/uL (1.8-7.0); NEUT % 83.7 % (50.0-75.0); NRBC % 0.2 % (0.0-2.0); RED CELL DISTRIBUTION WIDTH 18.7 % (11.5-14.5); WHITE BLOOD COUNT 5.1 K/uL (4.8-10.8)
[2018-05-01 18:10] LABS: FERRITIN 91.1 ng/mL
[2018-05-01 18:13] LABS: IRON 29 ug/dL (37-170)
--- NOTE | 2018-05-01 18:14 | US ---
Date of service: 05/01/2018 PROCEDURE: Renal/urinary bladder ultrasound HISTORY: renal failure COMPARISON: None. TECHNIQUE: Sonogram of the kidneys and urinary bladder. FINDINGS: RIGHT KIDNEY: Measures: 10.0 x 4.7 x 4.5 cm. No obstructing calculus or hydronephrosis identified. LEFT KIDNEY: Measures: 11.0 x 4.8 x 5.0 cm. No obstructing calculus or hydronephrosis identified. OTHER FINDINGS: Prevoid urinary bladder measures approximately 11.4 x 7.7 x 9.2 cm, calculated volume 422.5 mL. No postvoid residual volume. Incidental uterine calcifications likely related to fibroids. Small fluid within the endometrial canal. IMPRESSION: No obstructing calculus or hydronephrosis identified. Prevoid urinary bladder volume 422.5 mL. No postvoid residual volume. Incidental uterine calcifications likely related to fibroids. Small fluid within the endometrial canal.
[2018-05-01 18:23] LABS: % IRON SATURATION 11 (20-55); TOTAL IRON BINDING CAPACITY 274 ug/dL (250-450)
[2018-05-01 18:24] LABS: URIC ACID 9.7 mg/dL (2.2-7.5)
[2018-05-01 18:41] LABS: FOLATE 10.8 ng/mL
[2018-05-01 22:10] LABS: SQUAMOUS EPITHIAL < 1 /hpf (0-5); URINE BACTERIA RARE (<OCC); URINE BILIRUBIN NEGATIVE (NEGATIVE); URINE BLOOD NEGATIVE (NEGATIVE); URINE CLARITY Clear (Clear); URINE COLOR Straw (YELLOW); URINE GLUCOSE (UA) NORMAL (Normal); URINE LEUKOCYTE ESTERASE NEG Leu/uL (Negative); URINE PROTEIN NEGATIVE (NEGATIVE); URINE UROBILINOGEN NORMAL mg/dL (0.2-1.0)
[2018-05-01 22:26] LABS: CREATININE, RANDOM URINE 55.3 mg/dL
[2018-05-01] MEDS: Saccharomyces Boulardi 250 mg Cap PO SCH (23:22)
[2018-05-02] MEDS: Sodium Chloride 0.9% 1,000 ML IV SCH ×5 (01:30→21:30)
[2018-05-02 06:44] LABS: BASO % 0.4 % (0.0-2.0); EOS % 0.1 % (0.0-4.0); HEMOGLOBIN 8.2 g/dL (11.0-16.0); LYMPH # 1.2 K/uL (1.0-4.3); LYMPH % 17.6 % (20.0-40.0); MEAN CELL VOLUME 88.3 fL (81.0-99.0); MEAN CORPUSCULAR HEMOGLOBIN 29.9 pg (27.0-31.0); MEAN CORPUSCULAR HGB CONC 33.9 g/dL (33.0-37.0); MEAN PLATELET VOLUME 7.9 fL (7.2-11.7); MONO # 0.6 K/uL (0.0-0.8); MONO % 9.8 % (0.0-10.0); NEUT # 4.8 K/uL (1.8-7.0); NEUT % 72.1 % (50.0-75.0); NRBC % 0.2 % (0.0-2.0); RBC 2.73 Mil/uL (3.80-5.20); RED CELL DISTRIBUTION WIDTH 19.1 % (11.5-14.5); WHITE BLOOD COUNT 6.6 K/uL (4.8-10.8)
[2018-05-02 06:48] LABS: INR 1.6; PROTHROMBIN TIME 17.2 SECONDS (9.7-12.2)
[2018-05-02 07:39] LABS: ALB/GLOB RATIO 1.1 (1.0-2.1); ALBUMIN 3.2 g/dL (3.5-5.0); CALCIUM 8.7 mg/dl (8.6-10.4)
[2018-05-02] MEDS: Saccharomyces Boulardi 250 mg Cap PO SCH ×2 (09:51→17:25)
--- NOTE | 2018-05-02 13:36 | CP.PCM.PN ---
Subjective - Date & Time of Evaluation Date of Evaluation: 05/02/18 Time of Evaluation: 13:35 - Subjective Subjective: Nephrology Consultation Note: Assessment: stable SAGE likely due to dehydration, pre-renal and ATN: improving DM, HTN obesity metastatic breast CA HAGMA with superimposed metabolic alkalosis anemia Plan No acute need for renal replacement therapy at this time. Maintain hemodynamics stable. Avoid hypotension. hold ACEI/ARB due to SAGE Monitor Input/Output, daily weights and renal function with basic metabolic panel IVF as NS @ 100 ml/hr anemia management as per primary team/heme: added iron and MVI SAGE work up as ordered Dose meds/antibiotics for reduced GFR. Avoid fleets enema/magnesium based laxatives. Avoid nephrotoxins/NSAIDs/ iodinated contrast (unless needed emergently) Glycemic control Further work up for as per primary team Thanks for allowing me to participate in care of your patient. will follow with you. Please call if any Qs. had d/w team Dr Pal Kim Office: [phone] Chief Complaint; kidney problem HPI: Pt is a 67 y/o F with hx of hypertension, DM, metastatic to lung with fran ast CA as primary malignancy on chemotherapy (taxol, Herceptin and Pretuzomab) was sent for abnormal kidney function renal consult for SAGE management. she received chemotherapy few days ago, report ulcer on lip and lack of taste with limited oral food intake. reports 2 episode of dizziness as well. no known renal issues in past she denies chest pain, palpitation, shortness of breath, leg swelling Denies blood or bubbles in urine Denies OTC/herbal meds or NSAIDs No recent iodinated contrast exposure. Noted obvious episodes of low BP 104/70. ROS: feels better. denies CP/SOB/leg swelling. able to eat today. no dizziness All other negative Physical Examination: General Appearance: Comfortable, in no acute respiratory distress, co-operative . obese Vitals reviewed and noted as below Head; Atraumatic, normocephalic ENT: no ulcers no thrush. Tongue is midline. Oropharynx: no rash has lip ulcer. EYES: Pupils are equal, round and reactive to light accommodation. Eye muscles and extraocular movement intact. Sclera is anicteric. Neck; supple no lymphadenopathy, no thyromegaly or bruit Lungs: Normal respiratory rate/effort. Breath sounds bilateral equal and clear Heart: Normal rate. s1s2 normal. No rub or gallop. Extremities: no edema. No varicose veins Neurological: Patient is alert, awake and oriented to person, place and time. No focal deficit. Strength bilateral appropriate and equal Skin: Warm and dry. Normal turgor. No rash. Palpitation: Normal elasticity for age Abdomen: Abdomen is soft. Bowel sounds +. There is no abdominal tenderness, no guarding/rigidity no organomegaly Psych: normal insight and normal affect/mood MSK: no joint tenderness or swelling. Digits and nails normal, no deformity : kidney or bladder not palpable Labs/imaging/EKG reviewed. Past medical history, past surgical history, family history, social history, allergy reviewed and noted as below Family hx: no hx of CKD. Rest non-contributory Objective - Vital Signs/Intake and Output Vital Signs (last 24 hours): Temp Pulse Resp BP Pulse Ox 98.5 F 86 20 98/60 L 96 05/02/18 08:00 05/02/18 08:00 05/02/18 08:00 05/02/18 08:00 05/02/18 08:00 Intake and Output: 05/02/18 05/02/18 06:59 18:59 Intake Total 1840 Balance 1840 - Medications Medications: Current Medications Atenolol (Tenormin) 25 mg PO DAILY [facility] Last Admin: 05/02/18 09:49 Dose: Not Given Dexamethasone (Decadron) 8 mg PO BID [facility] Last Admin: 05/02/18 09:51 Dose: Not Given Sodium Chloride (Sodium Chloride 0.9%) 1,000 mls @ 100 mls/hr IV .Q10H [facility] Last Admin: 05/02/18 05:46 Dose: 100 mls/hr Ceftriaxone Sodium 1 gm/ (Sodium Chloride) 100 mls @ 100 mls/hr IVPB DAILY [facility]; Protocol Last Admin: 05/02/18 09:53 Dose: 100 mls/hr Lorazepam (Ativan) 0.5 mg PO TID PRN PRN Reason: Anxiety Ondansetron HCl (Zofran Tab) 4 mg PO Q6H PRN PRN Reason: Nausea/Vomiting Rivaroxaban (Xarelto) 15 mg PO DAILY [facility] Last Admin: 05/02/18 09:51 Dose: Not Given Saccharomyces Boulardii (Florastor) 250 mg PO BID [facility] Last Admin: 05/02/18 09:51 Dose: 250 mg - Labs Labs: 05/02/18 06:30 05/02/18 06:30 PT 17.2 SECONDS (9.7-12.2) H 05/02/18 06:30 INR 1.6 05/02/18 06:30 APTT 30 SECONDS (21-34) 05/02/18 06:30
--- NOTE | 2018-05-02 19:23 | CP.PCM.PN ---
Subjective - Date & Time of Evaluation Date of Evaluation: 05/02/18 Time of Evaluation: 10:00 - Subjective Subjective: Lionel Calero PGY-1, Medicine progress note Pt seen and examined at bedside. No acute events overnight. Pt is resting comfortably at bedside. Pt states that she does still have urinary frequency. Pt denies fever, chills, sob, cp, abdominal pain, n/v/d, dysuria, hematuria, hematochezia, melena. Pt is walking around without shortness of breath. Objective - Vital Signs/Intake and Output Vital Signs (last 24 hours): Temp Pulse Resp BP Pulse Ox 98.0 F 76 20 96/60 L 98 05/02/18 15:22 05/02/18 15:22 05/02/18 15:22 05/02/18 15:22 05/02/18 15:22 Intake and Output: 05/02/18 05/03/18 18:59 06:59 Intake Total 800 Balance 800 - Medications Medications: Current Medications Apixaban (Eliquis) 2.5 mg PO Q12H [facility] Last Admin: 05/02/18 19:01 Dose: 2.5 mg Atenolol (Tenormin) 25 mg PO DAILY [facility] Last Admin: 05/02/18 09:49 Dose: Not Given Dexamethasone (Decadron) 8 mg PO BID [facility] Last Admin: 05/02/18 09:51 Dose: Not Given Ferrous Gluconate (Fergon) 324 mg PO TID [facility] Last Admin: 05/02/18 19:02 Dose: 324 mg Sodium Chloride (Sodium Chloride 0.9%) 1,000 mls @ 100 mls/hr IV .Q10H [facility] Last Admin: 05/02/18 19:06 Dose: 100 mls/hr Ceftriaxone Sodium 1 gm/ (Sodium Chloride) 100 mls @ 100 mls/hr IVPB DAILY [facility]; Protocol Stop: 05/04/18 10:59 Last Admin: 05/02/18 09:53 Dose: 100 mls/hr Lorazepam (Ativan) 0.5 mg PO TID PRN PRN Reason: Anxiety Ondansetron HCl (Zofran Tab) 4 mg PO Q6H PRN PRN Reason: Nausea/Vomiting Saccharomyces Boulardii (Florastor) 250 mg PO BID [facility] Last Admin: 05/02/18 17:25 Dose: 250 mg Vitamin B Complex/Vit C/Folic Acid (Nephro-Fay) 1 tab PO 0800 [facility] - Labs Labs: 05/02/18 06:30 05/02/18 06:30 PT 17.2 SECONDS (9.7-12.2) H 05/02/18 06:30 INR 1.6 05/02/18 06:30 APTT 30 SECONDS (21-34) 05/02/18 06:30 - Constitutional Appears: Non-toxic, No Acute Distress - Head Exam Head Exam: NORMAL INSPECTION Additional comments: alopecia; likely chemotherapy induced - Eye Exam Eye Exam: EOMI, Normal appearance Additional comments: (+) conjunctival pallor - ENT Exam ENT Exam: Mucous Membranes Moist - Neck Exam Neck Exam: Normal Inspection - Respiratory Exam Respiratory Exam: Clear to Ausculation Bilateral. absent: Rales, Rhonchi, Wheezes, Respiratory Distress - Cardiovascular Exam Cardiovascular Exam: REGULAR RHYTHM, +S1, +S2 - GI/Abdominal Exam GI & Abdominal Exam: Soft, Normal Bowel Sounds. absent: Distended, Firm, Guarding, Rigid, Tenderness, Hernia - Extremities Exam Extremities Exam: Normal Capillary Refill, Normal Inspection, Pedal Edema (trace nonpitting edema)). absent: Calf Tenderness - Back Exam Back Exam: NORMAL INSPECTION. absent: CVA tenderness (L), CVA tenderness (R) - Neurological Exam Neurological Exam: Alert, Awake - Psychiatric Exam Psychiatric exam: Normal Affect, Normal Mood - Skin Skin Exam: Dry, Normal Color, Warm Assessment and Plan - Assessment and Plan (Free Text) Assessment: This is a 67 year old Mexican-speaking female with PMH of PE (on Xarelto 20 mg PO daily), stage 4 breast cancer with mets to the lung, HTN, DM who was sent to the hospital for admission for worsening SAGE noted on outpatient labs. Noted to have UTI while outpatient, pt complaining of urinary frequency with low grade fevers. Plan: SAGE - Creatinine noted to be 4.4 on admission -improved to 3.6 - continue NS IVF at 100 - avoid nephrotoxic medications wherever possible - hold home losartan/HCTZ 100/25 mg PO daily, and concomitant hold KCl 20 meq - f/u urine creatinine, sodium - f/u bence nj protein, immunofixation proteins - f/u nephrology, Dr. Judy, recs - fergon 324 TID - nephro-fay daily UTI - UA shows UTI, but contamination is likely - repeat UA is normal, urine culture is negative - renally dose Rocephin 1 g IVPB daily - will complete 3 day course for UTI - bladder US shows incidental uterine calcfications likely related to fibroids. Small fluid within the endometrial canal. Low grade fevers - blood culture prelim is negative for the past 24 hours - f/u sputum culture - pt already on rocephin Normocytic Anemia - pt has had hgb in high 8s and low 9s as per pt's heme/onc - Hgb is 8.2 (yesterday 8.9 x2) - likely due to hemodilution - iron is low at 29, TIBC is normal at 274, %sat is low at 11, ferritin is normal at 91.1 - f/u FOBT x2 - no indication for transfusion at this time - continue to monitor Stage 4 breast cancer with mets to the lung - Dr. Kody Duggan aware of pt's admission, may be contacted at - CXR shows limited linear atelectasis left base with rounded mass questioned at lateral right subpleural space. Postop changes to right apex. - discontinue decadron 8 mg PO BID as pt reports she only takes this during days of chemotherapy Hx of Hypertension - continue home Atenolol 25 mg PO daily - hold Losatran/HTCZ due to renal injury Hx of pumonary embolism - discontinue xarelto - start apixaban 2.5 mg PO BID as per Dr. Rendon due to renal insufficiency PPX/Diet - SCDs, chemical VTE ppx contraindicated due to pt being on apixaban - pepcid - apixiban 2.5 mg PO BID - renal diet, mod carb, heart healthy Case was reviewed and discussed with attending physician, Dr. Justice Calero PGY-1
[2018-05-03] MEDS: Sodium Chloride 0.9% 1,000 ML IV SCH ×3 (06:34→21:41)
[2018-05-03 06:52] LABS: BASO % 0.6 % (0.0-2.0); EOS # 0.1 K/uL (0.0-0.7); EOS % 1.6 % (0.0-4.0); HEMOGLOBIN 8.1 g/dL (11.0-16.0); LYMPH # 1.3 K/uL (1.0-4.3); LYMPH % 20.6 % (20.0-40.0); MEAN CELL VOLUME 88.6 fL (81.0-99.0); MEAN CORPUSCULAR HEMOGLOBIN 29.6 pg (27.0-31.0); MEAN CORPUSCULAR HGB CONC 33.4 g/dL (33.0-37.0); MONO # 0.9 K/uL (0.0-0.8); MONO % 14.1 % (0.0-10.0); NEUT # 3.9 K/uL (1.8-7.0); NEUT % 63.1 % (50.0-75.0); NRBC % 0.1 % (0.0-2.0); RBC 2.75 Mil/uL (3.80-5.20); RED CELL DISTRIBUTION WIDTH 18.8 % (11.5-14.5); WHITE BLOOD COUNT 6.1 K/uL (4.8-10.8)
[2018-05-03 07:02] LABS: ALBUMIN 2.8 g/dL (3.5-5.0); CALCIUM 8.3 mg/dl (8.6-10.4)
[2018-05-03] MEDS: Multivitamin Vitamin B Complex (Nephro-Vite) Tab PO SCH (08:56)
[2018-05-03] MEDS: Saccharomyces Boulardi 250 mg Cap PO SCH ×2 (10:18→17:29)
--- NOTE | 2018-05-03 13:15 | CP.PCM.PN ---
<Jenny Albert P - Last Filed: 05/03/18 22:29> Subjective - Date & Time of Evaluation Date of Evaluation: 05/03/18 Time of Evaluation: 08:00 - Subjective Subjective: PGY-[address] Gallego. Patient seen and examined at bedside. Patient state she feels much better and has no complaints at this time. Denies dysuria, hematuria, frequency, constipation, fever, and chills. Objective - Vital Signs/Intake and Output Vital Signs (last 24 hours): Temp Pulse Resp BP Pulse Ox 98.8 F 70 20 100/67 96 05/03/18 08:00 05/03/18 08:00 05/03/18 08:00 05/03/18 08:00 05/03/18 08:00 Intake and Output: 05/03/18 05/03/18 06:59 18:59 Intake Total 1150 1000 Balance 1150 1000 - Medications Medications: Current Medications Apixaban (Eliquis) 2.5 mg PO Q12 [facility] Last Admin: 05/03/18 10:19 Dose: 2.5 mg Atenolol (Tenormin) 25 mg PO DAILY [facility] Last Admin: 05/03/18 10:20 Dose: Not Given Dexamethasone (Decadron) 8 mg PO BID [facility] Last Admin: 05/02/18 09:51 Dose: Not Given Docusate Sodium (Colace) 100 mg PO BID [facility] Ferrous Gluconate (Fergon) 324 mg PO TID [facility] Last Admin: 05/03/18 10:18 Dose: 324 mg Sodium Chloride (Sodium Chloride 0.9%) 1,000 mls @ 100 mls/hr IV .Q10H [facility] Last Admin: 05/03/18 06:34 Dose: 100 mls/hr Ceftriaxone Sodium 1 gm/ (Sodium Chloride) 100 mls @ 100 mls/hr IVPB DAILY [facility]; Protocol Stop: 05/04/18 10:59 Last Admin: 05/03/18 10:18 Dose: 100 mls/hr Lorazepam (Ativan) 0.5 mg PO TID PRN PRN Reason: Anxiety Ondansetron HCl (Zofran Tab) 4 mg PO Q6H PRN PRN Reason: Nausea/Vomiting Saccharomyces Boulardii (Florastor) 250 mg PO BID [facility] Last Admin: 05/03/18 10:18 Dose: 250 mg Vitamin B Complex/Vit C/Folic Acid (Nephro-Fay) 1 tab PO 0800 [facility] Last Admin: 05/03/18 08:56 Dose: 1 tab - Labs Labs: 05/03/18 06:41 05/03/18 06:41 PT 17.2 SECONDS (9.7-12.2) H 05/02/18 06:30 INR 1.6 05/02/18 06:30 APTT 30 SECONDS (21-34) 05/02/18 06:30 - Head Exam Head Exam: ATRAUMATIC, NORMOCEPHALIC - Eye Exam Eye Exam: EOMI - ENT Exam ENT Exam: Mucous Membranes Moist - Respiratory Exam Respiratory Exam: Clear to Ausculation Bilateral, NORMAL BREATHING PATTERN. absent: Decreased Breath Sounds, Rales, Rhonchi, Wheezes - Cardiovascular Exam Cardiovascular Exam: REGULAR RHYTHM, +S1, +S2 - GI/Abdominal Exam GI & Abdominal Exam: Soft, Normal Bowel Sounds. absent: Guarding, Tenderness, Rebound - Extremities Exam Extremities Exam: Full ROM, Normal Inspection. absent: Pedal Edema, Tenderness - Neurological Exam Neurological Exam: Alert, Awake, Oriented x3 - Psychiatric Exam Psychiatric exam: Normal Affect, Normal Mood - Skin Skin Exam: Dry, Normal Color, Warm Assessment and Plan - Assessment and Plan (Free Text) Plan: This is a 67 year old Uzbek-speaking female with PMH of PE (on Xarelto 20 mg PO daily), stage 4 breast cancer with mets to the lung, HTN, DM who was sent to the hospital for admission for worsening SAGE noted on outpatient labs. Noted to have UTI while outpatient, pt complaining of urinary frequency with low grade fevers. SAGE - Creatinine noted to be 4.4 on admission -improved to 2.9 - continue NS IVF at 100 - avoid nephrotoxic medications wherever possible - hold home losartan/HCTZ 100/25 mg PO daily, and concomitant hold KCl 20 meq - Urine cr: 55.3, urine Na: 25. FENa: 1% - f/u bence nj protein, immunofixation proteins - f/u nephrology, Dr. iKm, recs - fergon 324 TID - nephro-fay daily UTI - UA shows UTI, but contamination is likely - repeat UA is normal, urine culture is negative - renally dose Rocephin 1 g IVPB daily - will complete 3 day course for UTI - bladder US shows incidental uterine calcfications likely related to fibroids. Small fluid within the endometrial canal. Low grade fevers - blood culture prelim is negative for the past 24 hours - f/u sputum culture - pt already on rocephin Normocytic Anemia - pt has had hgb in high 8s and low 9s as per pt's heme/onc - Hgb is 8.1 - iron is low at 29, TIBC is normal at 274, %sat is low at 11, ferritin is rosendo l at 91.1 - f/u FOBT x2 - 05/03 transfused 1 unit PRBC, f/u CBC - continue to monitor Stage 4 breast cancer with mets to the lung - Dr. Kody Duggan aware of pt's admission, may be contacted at - CXR shows limited linear atelectasis left base with rounded mass questioned at lateral right subpleural space. Postop changes to right apex. - discontinue decadron 8 mg PO BID as pt reports she only takes this during days of chemotherapy Hx of Hypertension - continue home Atenolol 25 mg PO daily - hold Losatran/HTCZ due to renal injury Hx of pumonary embolism - discontinue xarelto - start apixaban 2.5 mg PO BID as per Dr. Rendon due to renal insufficiency PPX/Diet - SCDs, chemical VTE ppx contraindicated due to pt being on apixaban - pepcid - apixiban 2.5 mg PO BID - renal diet, mod carb, heart healthy - colace 100 BID <Britany Gallego V - Last Filed: 05/04/18 09:06> Objective - Vital Signs/Intake and Output Vital Signs (last 24 hours): Temp Pulse Resp BP Pulse Ox 98.7 F 90 20 103/62 98 05/04/18 07:49 05/04/18 07:49 05/04/18 07:49 05/04/18 07:49 05/04/18 07:49 Intake and Output: 05/04/18 05/04/18 06:59 18:59 Intake Total 1600 Balance 1600 - Medications Medications: Current Medications Apixaban (Eliquis) 2.5 mg PO Q12 [facility] Last Admin: 05/03/18 21:38 Dose: 2.5 mg Atenolol (Tenormin) 25 mg PO DAILY [facility] Last Admin: 05/03/18 10:20 Dose: Not Given Dexamethasone (Decadron) 8 mg PO BID [facility] Last Admin: 05/02/18 09:51 Dose: Not Given Docusate Sodium (Colace) 100 mg PO BID [facility] Last Admin: 05/03/18 17:29 Dose: 100 mg Ferrous Gluconate (Fergon) 324 mg PO TID [facility] Last Admin: 05/03/18 17:29 Dose: 324 mg Sodium Chloride (Sodium Chloride 0.9%) 1,000 mls @ 100 mls/hr IV .Q10H [facility] Last Admin: 05/04/18 08:30 Dose: 100 mls/hr Ceftriaxone Sodium 1 gm/ (Sodium Chloride) 100 mls @ 100 mls/hr IVPB DAILY [facility]; Protocol Stop: 05/04/18 10:59 Last Admin: 05/03/18 10:18 Dose: 100 mls/hr Magnesium Sulfate/Dextrose (Magnesium Sulfate 1 Gm/100 Ml D5w) 1 gm in 100 mls @ 300 mls/hr IVPB Q30M [facility] Stop: 05/04/18 09:49 Lorazepam (Ativan) 0.5 mg PO TID PRN PRN Reason: Anxiety Ondansetron HCl (Zofran Tab) 4 mg PO Q6H PRN PRN Reason: Nausea/Vomiting Saccharomyces Boulardii (Florastor) 250 mg PO BID [facility] Last Admin: 05/03/18 17:29 Dose: 250 mg Vitamin B Complex/Vit C/Folic Acid (Nephro-Fay) 1 tab PO 0800 [facility] Last Admin: 05/04/18 08:25 Dose: 1 tab - Labs Labs: 05/04/18 06:00 05/04/18 06:00 PT 17.2 SECONDS (9.7-12.2) H 05/02/18 06:30 INR 1.6 05/02/18 06:30 APTT 30 SECONDS (21-34) 05/02/18 06:30 Attending/Attestation - Attestation I have personally seen and examined this patient.: Yes I have fully participated in the care of the patient.: Yes I have reviewed all pertinent clinical information, including history, physical exam and plan: Yes Notes (Text): This is late computer entry for 05/03/18. patient seen, examined and case discussed with behavioral medical director. patient reports she is doing well. Patient's hgb in the 8s and renal function continues to improve. Renal contacted by heme-onc for discussion for 1 prbc transfusion attributing to dehydration and borderline low normal BP. We will transfuse 1 unit of PRBC tonight. Assessment/Plan 1) Acute Renal Insufficiency Assessment/Plan * Nephrology on board-->help appreciated * workup per nephrology * Creatinine noted to be 4.4 which is change from 1.2 as outpatient * Improving * NS IVF at 100cc/hr * on admission we held * hold home losartan/HCTZ 100/25 mg PO daily, and concomitant hold KCl 20 meq * PTH: elevated * Urine creatinine: 55.3 * Urine sodium: 25 * Bladder US: no obstructing calculus or hydronephrosis identified. prevoid urinary bladder volume 422.5ml. no postvoid residual volume. incidental uterine calcifications likely related to fibroids small fluid within the endometrial canal 2) Abnormal UA Assessment/Plan * UA on admission noted for esterase, pyuria, hematuria, but also contaminated * Repeat UA is clean catch * urine culture: no growth * c/w Rocephin 1 g IVPB daily (active since 05/02/18) 3) Low grade fevers Assessment/Plan * Blood culture (05/01/18): no growth after 48 hours X2 * Urine culture (05/01/18): no growth * Chest xray (05/04/18); limited linera atectasis left base with round mass in question * c/w Rocephin 1 g IVPB daily (active since 05/02/18) * Afebrile during admission * mild neutropenia while on antibiotic today only 4) Normocytic Anemia Assessment/Plan * pt has had hgb in high 8s and low 9s as per pt's heme/onc * Reticulocyte count: 4.8 * Reticulocyte index: 0.37-->hypoproliferation * Iron: 29, TIBC: 274, iron saturation: 11, ferritin: 91.1. folate: 10.8 * pending stool occult blood * patient started on Fergon 324mg PO TID on 05/02/18 * Patient reports normal bowel movements denies GI workup 5) History of Stage 4 breast cancer with mets to the lung Assessment/Plan * f/u heme/onc recs as per Dr. Duggan * CXR shows limited linear atelectasis left base with rounded mass questioned at lateral right subpleural space. Postop changes to right apex. * Held decadron 8 mg PO BID 6) Hx of Hypertension Assessment/Plan * continue home Atenolol 25 mg PO daily * hold Losatran/HTCZ due to renal injury 7) Hx of pulmonary embolism Assessment/Plan * Switch from Xarelto to Eliquis * Patient is on Eliquis 2.5mg PO BID 8) PPX/Diet * SCDs, chemical VTE ppx contraindicated due to pt being on Eliquis * pepcid 20mg PO daily * renal diet, mod carb, heart healthy
--- NOTE | 2018-05-03 13:22 | CP.PCM.PN ---
Subjective - Date & Time of Evaluation Date of Evaluation: 05/03/18 Time of Evaluation: 13:20 - Subjective Subjective: Nephrology Consultation Note: Assessment: stable SAGE likely due to dehydration, pre-renal and ATN: improving DM, HTN obesity metastatic breast CA HAGMA with superimposed metabolic alkalosis anemia Plan No acute need for renal replacement therapy at this time. Maintain hemodynamics stable. Avoid hypotension. hold ACEI/ARB due to SAGE Monitor Input/Output, daily weights and renal function with basic metabolic panel IVF as NS @ 100 ml/hr anemia management as per primary team/heme: added iron and MVI. d/w her heme/onc and was suggested to consider PRBC transfusion. will defer it to medical team. SAGE work up as ordered, so far favors diagnosis as mentioned above Dose meds/antibiotics for reduced GFR. Avoid fleets enema/magnesium based laxatives. Avoid nephrotoxins/NSAIDs/ iodinated contrast (unless needed emergently) Glycemic control Further work up for as per primary team Thanks for allowing me to participate in care of your patient. will follow with you. Please call if any Qs. had d/w team Dr Pal Kim Office: [phone] Chief Complaint; kidney problem HPI: Pt is a 67 y/o F with hx of hypertension, DM, metastatic to lung with breast CA as primary malignancy on chemotherapy (taxol, Herceptin and Pretuzomab) was sent for abnormal kidney function renal consult for SAGE management. she received chemotherapy few days ago, report ulcer on lip and lack of taste with limited oral food intake. reports 2 episode of dizziness as well. no known renal issues in past she denies chest pain, palpitation, shortness of breath, leg swelling Denies blood or bubbles in urine Denies OTC/herbal meds or NSAIDs No recent iodinated contrast exposure. Noted obvious episodes of low BP 104/70. ROS: feels better. denies CP/SOB/leg swelling. able to eat today. no dizziness All other negative Physical Examination: General Appearance: Comfortable, in no acute respiratory distress, co-operative . obese Vitals reviewed and noted as below Head; Atraumatic, normocephalic ENT: no ulcers no thrush. Tongue is midline. Oropharynx: no rash has lip ulcer. EYES: Pupils are equal, round and reactive to light accommodation. Eye muscles and extraocular movement intact. Sclera is anicteric. Neck; supple no lymphadenopathy, no thyromegaly or bruit Lungs: Normal respiratory rate/effort. Breath sounds bilateral equal and clear Heart: Normal rate. s1s2 normal. No rub or gallop. Extremities: no edema. No varicose veins Neurological: Patient is alert, awake and oriented to person, place and time. No focal deficit. Strength bilateral appropriate and equal Skin: Warm and dry. Normal turgor. No rash. Palpitation: Normal elasticity for age Abdomen: Abdomen is soft. Bowel sounds +. There is no abdominal tenderness, no guarding/rigidity no organomegaly Psych: normal insight and normal affect/mood MSK: no joint tenderness or swelling. Digits and nails normal, no deformity : kidney or bladder not palpable Labs/imaging/EKG reviewed. Past medical history, past surgical history, family history, social history, allergy reviewed and noted as below Family hx: no hx of CKD. Rest non-contributory Objective - Vital Signs/Intake and Output Vital Signs (last 24 hours): Temp Pulse Resp BP Pulse Ox 98.8 F 70 20 100/67 96 05/03/18 08:00 05/03/18 08:00 05/03/18 08:00 05/03/18 08:00 05/03/18 08:00 Intake and Output: 05/03/18 05/03/18 06:59 18:59 Intake Total 1150 1000 Balance 1150 1000 - Medications Medications: Current Medications Apixaban (Eliquis) 2.5 mg PO Q12 [facility] Last Admin: 05/03/18 10:19 Dose: 2.5 mg Atenolol (Tenormin) 25 mg PO DAILY [facility] Last Admin: 05/03/18 10:20 Dose: Not Given Dexamethasone (Decadron) 8 mg PO BID [facility] Last Admin: 05/02/18 09:51 Dose: Not Given Docusate Sodium (Colace) 100 mg PO BID [facility] Ferrous Gluconate (Fergon) 324 mg PO TID [facility] Last Admin: 05/03/18 10:18 Dose: 324 mg Sodium Chloride (Sodium Chloride 0.9%) 1,000 mls @ 100 mls/hr IV .Q10H [facility] Last Admin: 05/03/18 06:34 Dose: 100 mls/hr Ceftriaxone Sodium 1 gm/ (Sodium Chloride) 100 mls @ 100 mls/hr IVPB DAILY [facility]; Protocol Stop: 05/04/18 10:59 Last Admin: 05/03/18 10:18 Dose: 100 mls/hr Lorazepam (Ativan) 0.5 mg PO TID PRN PRN Reason: Anxiety Ondansetron HCl (Zofran Tab) 4 mg PO Q6H PRN PRN Reason: Nausea/Vomiting Saccharomyces Boulardii (Florastor) 250 mg PO BID [facility] Last Admin: 05/03/18 10:18 Dose: 250 mg Vitamin B Complex/Vit C/Folic Acid (Nephro-Aki) 1 tab PO 0800 [facility] Last Admin: 05/03/18 08:56 Dose: 1 tab - Labs Labs: 05/03/18 06:41 05/03/18 06:41 PT 17.2 SECONDS (9.7-12.2) H 05/02/18 06:30 INR 1.6 05/02/18 06:30 APTT 30 SECONDS (21-34) 05/02/18 06:30
[2018-05-04 00:37] LABS: HEMOGLOBIN 8.8 g/dL (11.0-16.0); MEAN CELL VOLUME 89.1 fL (81.0-99.0); MEAN CORPUSCULAR HEMOGLOBIN 29.8 pg (27.0-31.0); MEAN CORPUSCULAR HGB CONC 33.4 g/dL (33.0-37.0); MEAN PLATELET VOLUME 7.7 fL (7.2-11.7); RBC 2.94 Mil/uL (3.80-5.20); RED CELL DISTRIBUTION WIDTH 18.2 % (11.5-14.5); WHITE BLOOD COUNT 4.9 K/uL (4.8-10.8)
[2018-05-04 06:40] LABS: BASO % 0.8 % (0.0-2.0); EOS # 0.1 K/uL (0.0-0.7); EOS % 2.3 % (0.0-4.0); HEMOGLOBIN 8.9 g/dL (11.0-16.0); LYMPH # 0.9 K/uL (1.0-4.3); LYMPH % 20.1 % (20.0-40.0); MEAN CELL VOLUME 88.4 fL (81.0-99.0); MEAN CORPUSCULAR HEMOGLOBIN 29.8 pg (27.0-31.0); MEAN CORPUSCULAR HGB CONC 33.7 g/dL (33.0-37.0); MEAN PLATELET VOLUME 7.8 fL (7.2-11.7); MONO # 0.8 K/uL (0.0-0.8); MONO % 16.9 % (0.0-10.0); NEUT # 2.7 K/uL (1.8-7.0); NEUT % 59.9 % (50.0-75.0); NRBC % 0.2 % (0.0-2.0); RBC 2.98 Mil/uL (3.80-5.20); RED CELL DISTRIBUTION WIDTH 18.5 % (11.5-14.5); WHITE BLOOD COUNT 4.5 K/uL (4.8-10.8)
[2018-05-04 08:02] LABS: ALBUMIN 2.7 g/dL (3.5-5.0); CALCIUM 8.1 mg/dl (8.6-10.4)
[2018-05-04] MEDS: Multivitamin Vitamin B Complex (Nephro-Vite) Tab PO SCH (08:25)
[2018-05-04] MEDS: Sodium Chloride 0.9% 1,000 ML IV SCH ×3 (08:30→23:30)
[2018-05-04] MEDS: Magnesium Sulfate 1 gm in D5W 1 GM/100 ML BAG IVPB SCH ×2 (09:08→09:58)
--- NOTE | 2018-05-04 09:08 | CP.PCM.PN ---
Subjective - Date & Time of Evaluation Date of Evaluation: 05/04/18 Time of Evaluation: 09:00 - Subjective Subjective: Medical attending note: Patient seen and examined at bedside. Patient had 1 unit of PRBC overnight. patient denies adverse reactions. Patient denies fever, denies chills, denies chest pain, reports dry cough, denies abdominal pain, denies nausea, denies vomitting, denies BRBPR, denies black stool,. patient reports she is tolerating diet well. Objective - Vital Signs/Intake and Output Vital Signs (last 24 hours): Temp Pulse Resp BP Pulse Ox 98.7 F 90 20 103/62 98 05/04/18 07:49 05/04/18 07:49 05/04/18 07:49 05/04/18 07:49 05/04/18 07:49 Intake and Output: 05/04/18 05/04/18 06:59 18:59 Intake Total 1600 Balance 1600 - Medications Medications: Current Medications Apixaban (Eliquis) 2.5 mg PO Q12 [facility] [place] Last Admin: 05/03/18 21:38 Dose: 2.5 mg Atenolol (Tenormin) 25 mg PO DAILY [facility] [place] Last Admin: 05/03/18 10:20 Dose: Not Given Dexamethasone (Decadron) 8 mg PO BID [facility] [place] Last Admin: 05/02/18 09:51 Dose: Not Given Docusate Sodium (Colace) 100 mg PO BID [facility] [place] Last Admin: 05/03/18 17:29 Dose: 100 mg Ferrous Gluconate (Fergon) 324 mg PO TID [facility] [place] Last Admin: 05/03/18 17:29 Dose: 324 mg Sodium Chloride (Sodium Chloride 0.9%) 1,000 mls @ 100 mls/hr IV .Q10H [facility] [place] Last Admin: 05/04/18 08:30 Dose: 100 mls/hr Ceftriaxone Sodium 1 gm/ (Sodium Chloride) 100 mls @ 100 mls/hr IVPB DAILY [facility] [place]; Protocol Stop: 05/04/18 10:59 Last Admin: 05/03/18 10:18 Dose: 100 mls/hr Magnesium Sulfate/Dextrose (Magnesium Sulfate 1 Gm/100 Ml D5w) 1 gm in 100 mls @ 300 mls/hr IVPB Q30M [facility] Stop: 05/04/18 09:49 Lorazepam (Ativan) 0.5 mg PO TID PRN PRN Reason: Anxiety Ondansetron HCl (Zofran Tab) 4 mg PO Q6H PRN PRN Reason: Nausea/Vomiting Saccharomyces Boulardii (Florastor) 250 mg PO BID [facility] [place] Last Admin: 05/03/18 17:29 Dose: 250 mg Vitamin B Complex/Vit C/Folic Acid (Nephro-Aki) 1 tab PO 0800 [facility] Last Admin: 05/04/18 08:25 Dose: 1 tab - Labs Labs: 05/04/18 06:00 05/04/18 06:00 PT 17.2 SECONDS (9.7-12.2) H 05/02/18 06:30 INR 1.6 05/02/18 06:30 APTT 30 SECONDS (21-34) 05/02/18 06:30 Attending/Attestation - Attestation I have personally seen and examined this patient.: Yes I have fully participated in the care of the patient.: Yes I have reviewed all pertinent clinical information, including history, physical exam and plan: Yes Notes (Text): patient reports dry cough. patient tolerated 1 unit of PRBC overnight. Patient tolerating diet. patient reports she is doing well. Assessment/Plan 1) Acute Renal Insufficiency Assessment/Plan * Nephrology on board-->help appreciated * workup per nephrology * Creatinine noted to be 4.4 which is change from 1.2 as outpatient * Improving * NS IVF at 100cc/hr * on admission we held * hold home losartan/HCTZ 100/25 mg PO daily, and concomitant hold KCl 20 meq * PTH: elevated * Urine creatinine: 55.3 * Urine sodium: 25 * Bladder US: no obstructing calculus or hydronephrosis identified. prevoid u rinary bladder volume 422.5ml. no postvoid residual volume. incidental uterine calcifications likely related to fibroids small fluid within the endometrial canal 2) Abnormal UA Assessment/Plan * UA on admission noted for esterase, pyuria, hematuria, but also contaminated * Repeat UA is clean catch * urine culture: no growth * c/w Rocephin 1 g IVPB daily (active since 05/02/18) 3) Low grade fevers Assessment/Plan * Blood culture (05/01/18): no growth after 48 hours X2 * Urine culture (05/01/18): no growth * Chest xray (05/04/18); limited linera atectasis left base with round mass in question * c/w Rocephin 1 g IVPB daily (active since 05/02/18) * Afebrile during admission * mild neutropenia while on antibiotic today only 4) Normocytic Anemia Assessment/Plan * pt has had hgb in high 8s and low 9s as per pt's heme/onc * Reticulocyte count: 4.8 * Reticulocyte index: 0.37-->hypoproliferation * Iron: 29, TIBC: 274, iron saturation: 11, ferritin: 91.1. folate: 10.8 * pending stool occult blood * patient started on Fergon 324mg PO TID on 05/02/18 * Patient reports normal bowel movements denies GI workup 5) History of Stage 4 breast cancer with mets to the lung Assessment/Plan * f/u heme/onc recs as per Dr. Duggan * CXR shows limited linear atelectasis left base with rounded mass questioned at lateral right subpleural space. Postop changes to right apex. * Held decadron 8 mg PO BID 6) Hx of Hypertension Assessment/Plan * continue home Atenolol 25 mg PO daily * hold Losatran/HTCZ due to renal injury 7) Hx of pulmonary embolism Assessment/Plan * Switch from Xarelto to Eliquis * Patient is on Eliquis 2.5mg PO BID 8) PPX/Diet * SCDs, chemical VTE ppx contraindicated due to pt being on Eliquis * pepcid 20mg PO daily * renal diet, mod carb, heart healthy
[2018-05-04] MEDS: guaiFENesin 100 mg/5 ml Syrup UD PO PRN (09:57)
[2018-05-04] MEDS: Saccharomyces Boulardi 250 mg Cap PO SCH ×2 (09:59→17:43)
--- NOTE | 2018-05-04 15:20 | CP.PCM.PN ---
Subjective - Date & Time of Evaluation Date of Evaluation: 05/04/18 Time of Evaluation: 15:18 - Subjective Subjective: Nephrology Consultation Note: Assessment: stable SAGE likely due to dehydration, pre-renal and ATN: improving DM, HTN obesity metastatic breast CA HAGMA with superimposed metabolic alkalosis anemia Plan No acute need for renal replacement therapy at this time. lytes ok bp stable Maintain hemodynamics stable. hold ACEI/ARB due to SAGE Monitor Input/Output IVF as NS @ 100 ml/hr anemia management as per primary team/heme: transfuse prn Physical Examination: General Appearance: Comfortable, in no acute respiratory distress, co-operative . obese Vitals reviewed and noted as below Head; Atraumatic, normocephalic ENT: no ulcers Tongue is midline. Oropharynx: no rash has lip ulcer. EYES: Eye muscles and extraocular movement intact. Sclera is anicteric. Neck; supple no thyromegaly or bruit Lungs: Normal respiratory rate/effort. Breath sounds bilateral equal and clear Heart: Normal rate. s1s2 normal. No rub or gallop. Extremities: no edema. No varicose veins Neurological: Patient is alert, awake and oriented to person, place and time. No focal deficit. Strength bilateral appropriate and equal Skin: Warm and dry. Normal turgor. Abdomen: Abdomen is soft. Bowel sounds +. There is no abdominal tenderness, no guarding/rigidity no organomegaly Psych: normal insight and normal affect/mood MSK: no joint tenderness or swelling Objective - Vital Signs/Intake and Output Vital Signs (last 24 hours): Temp Pulse Resp BP Pulse Ox 98.7 F 90 20 103/62 98 05/04/18 07:49 05/04/18 07:49 05/04/18 07:49 05/04/18 07:49 05/04/18 07:49 Intake and Output: 05/04/18 05/04/18 06:59 18:59 Intake Total 1600 900 Balance 1600 900 - Medications Medications: Current Medications Apixaban (Eliquis) 2.5 mg PO Q12 [facility] Last Admin: 05/04/18 09:59 Dose: 2.5 mg Atenolol (Tenormin) 25 mg PO DAILY [facility] Last Admin: 05/04/18 10:04 Dose: 25 mg Dexamethasone (Decadron) 8 mg PO BID [facility] Last Admin: 05/02/18 09:51 Dose: Not Given Docusate Sodium (Colace) 100 mg PO BID [facility] Last Admin: 05/04/18 09:59 Dose: 100 mg Ferrous Gluconate (Fergon) 324 mg PO TID [facility] Last Admin: 05/04/18 09:59 Dose: 324 mg Guaifenesin (Robitussin) 100 mg PO Q4H PRN PRN Reason: Cough Last Admin: 05/04/18 09:57 Dose: 100 mg Sodium Chloride (Sodium Chloride 0.9%) 1,000 mls @ 100 mls/hr IV .Q10H [facility] Last Admin: 05/04/18 08:30 Dose: 100 mls/hr Lorazepam (Ativan) 0.5 mg PO TID PRN PRN Reason: Anxiety Ondansetron HCl (Zofran Tab) 4 mg PO Q6H PRN PRN Reason: Nausea/Vomiting Saccharomyces Boulardii (Florastor) 250 mg PO BID [facility] Last Admin: 05/04/18 09:59 Dose: 250 mg Vitamin B Complex/Vit C/Folic Acid (Nephro-Aki) 1 tab PO 0800 [facility] Last Admin: 05/04/18 08:25 Dose: 1 tab - Labs Labs: 05/04/18 06:00 05/04/18 06:00 PT 17.2 SECONDS (9.7-12.2) H 05/02/18 06:30 INR 1.6 05/02/18 06:30 APTT 30 SECONDS (21-34) 05/02/18 06:30
[2018-05-05] MEDS: Sodium Chloride 0.9% 1,000 ML IV SCH ×2 (06:57→09:31)
[2018-05-05 07:26] LABS: BASO % 0.9 % (0.0-2.0); EOS # 0.1 K/uL (0.0-0.7); EOS % 2.2 % (0.0-4.0); HEMOGLOBIN 8.9 g/dL (11.0-16.0); LYMPH # 1.1 K/uL (1.0-4.3); MEAN CELL VOLUME 89.1 fL (81.0-99.0); MEAN CORPUSCULAR HEMOGLOBIN 30.1 pg (27.0-31.0); MEAN CORPUSCULAR HGB CONC 33.7 g/dL (33.0-37.0); MEAN PLATELET VOLUME 7.8 fL (7.2-11.7); MONO # 0.7 K/uL (0.0-0.8); MONO % 14.8 % (0.0-10.0); NEUT # 2.9 K/uL (1.8-7.0); NEUT % 59.1 % (50.0-75.0); NRBC % 0.1 % (0.0-2.0); RBC 2.94 Mil/uL (3.80-5.20); RED CELL DISTRIBUTION WIDTH 18.4 % (11.5-14.5); WHITE BLOOD COUNT 4.9 K/uL (4.8-10.8)
[2018-05-05 07:57] LABS: ALBUMIN 2.8 g/dL (3.5-5.0); CALCIUM 8.6 mg/dl (8.6-10.4)
[2018-05-05] MEDS: Saccharomyces Boulardi 250 mg Cap PO SCH (09:25)
[2018-05-05] MEDS: Multivitamin Vitamin B Complex (Nephro-Vite) Tab PO SCH (09:25)
[2018-05-05] MEDS: guaiFENesin 100 mg/5 ml Syrup UD PO PRN (09:29)
--- NOTE | 2018-05-05 09:36 | CP.PCM.PN ---
Subjective - Date & Time of Evaluation Date of Evaluation: 05/05/18 Time of Evaluation: 09:30 - Subjective Subjective: Medical Attending Note Patient seen and examined this morning. Patient's daughter present at bedside. Patient reports she has dry cough this morning. Patient did receive Robotussin. Patient denies nausea, denies vomitting, denies abdominal pain, denies dysuria, denies frequency. Patient was seen by GI fellow this morning per discussion. Objective - Vital Signs/Intake and Output Vital Signs (last 24 hours): Temp Pulse Resp BP Pulse Ox 98.9 F 84 20 99/62 L 96 05/04/18 23:49 05/04/18 23:49 05/04/18 23:49 05/04/18 23:49 05/04/18 23:49 Intake and Output: 05/05/18 05/05/18 06:59 18:59 Intake Total 2120 Balance 2120 - Medications Medications: Current Medications Apixaban (Eliquis) 2.5 mg PO Q12 [facility] Last Admin: 05/05/18 09:25 Dose: 2.5 mg Atenolol (Tenormin) 25 mg PO DAILY [facility] Last Admin: 05/05/18 09:25 Dose: 25 mg Dexamethasone (Decadron) 8 mg PO BID [facility] Last Admin: 05/02/18 09:51 Dose: Not Given Docusate Sodium (Colace) 100 mg PO BID [facility] Last Admin: 05/05/18 09:24 Dose: 100 mg Ferrous Gluconate (Fergon) 324 mg PO TID [facility] Last Admin: 05/05/18 09:25 Dose: 324 mg Guaifenesin (Robitussin) 100 mg PO Q4H PRN PRN Reason: Cough Last Admin: 05/05/18 09:29 Dose: 100 mg Sodium Chloride (Sodium Chloride 0.9%) 1,000 mls @ 100 mls/hr IV .Q10H [facility] Last Admin: 05/05/18 09:31 Dose: Not Given Lorazepam (Ativan) 0.5 mg PO TID PRN PRN Reason: Anxiety Ondansetron HCl (Zofran Tab) 4 mg PO Q6H PRN PRN Reason: Nausea/Vomiting Saccharomyces Boulardii (Florastor) 250 mg PO BID [facility] Last Admin: 05/05/18 09:25 Dose: 250 mg Vitamin B Complex/Vit C/Folic Acid (Nephro-Aki) 1 tab PO 0800 [facility] Last Admin: 05/05/18 09:25 Dose: 1 tab - Labs Labs: 05/05/18 07:21 05/05/18 07:21 PT 17.2 SECONDS (9.7-12.2) H 05/02/18 06:30 INR 1.6 05/02/18 06:30 APTT 30 SECONDS (21-34) 05/02/18 06:30 - Constitutional Appears: Non-toxic, No Acute Distress - Head Exam Head Exam: NORMAL INSPECTION Additional comments: hairless port cath right side: clean/dry/intact - Eye Exam Eye Exam: EOMI, PERRL - ENT Exam ENT Exam: Mucous Membranes Moist - Respiratory Exam Respiratory Exam: Clear to Ausculation Bilateral, NORMAL BREATHING PATTERN. absent: Rales, Rhonchi, Wheezes - Cardiovascular Exam Cardiovascular Exam: REGULAR RHYTHM, +S1, +S2 - GI/Abdominal Exam GI & Abdominal Exam: Soft, Normal Bowel Sounds. absent: Distended, Firm, Guarding, Rigid, Tenderness, Rebound - Extremities Exam Extremities Exam: absent: Pedal Edema, Tenderness - Neurological Exam Neurological Exam: Alert, Awake, Oriented x3 - Psychiatric Exam Psychiatric exam: Normal Affect, Normal Mood - Skin Skin Exam: Dry, Normal Color, Warm Assessment and Plan (1) Renal failure (ARF), acute on chronic Status: Acute (2) Hx of breast cancer Status: Chronic (3) Anemia Status: Acute (4) HTN (hypertension) Status: Chronic (5) Hyperlipidemia Status: Chronic Attending/Attestation - Attestation I have personally seen and examined this patient.: Yes I have fully participated in the care of the patient.: Yes I have reviewed all pertinent clinical information, including history, physical exam and plan: Yes Notes (Text): Assessment/Plan 1) Acute Renal Insufficiency Assessment/Plan * Nephrology on board-->help appreciated * workup per nephrology * Creatinine noted to be 4.4 which is change from 1.2 as outpatient * Improving * NS IVF at 100cc/hr * on admission we held * hold home losartan/HCTZ 100/25 mg PO daily, and concomitant hold KCl 20 meq * PTH: elevated * Urine creatinine: 55.3 * Urine sodium: 25 * Bladder US: no obstructing calculus or hydronephrosis identified. prevoid urinary bladder volume 422.5ml. no postvoid residual volume. incidental uterine calcifications likely related to fibroids small fluid within the e ndometrial canal 2) Abnormal UA Assessment/Plan * UA on admission noted for esterase, pyuria, hematuria, but also contaminated * Repeat UA is clean catch * urine culture: no growth * c/w Rocephin 1 g IVPB daily (active since 05/02/18) 3) Low grade fevers Assessment/Plan * Blood culture (05/01/18): no growth after 3 days X2 * Urine culture (05/01/18): no growth * Chest xray (05/04/18); limited linera atectasis left base with round mass in question * c/w Rocephin 1 g IVPB daily (active since 05/02/18) * Afebrile during admission * mild neutropenia while on antibiotic today only 4) Normocytic Anemia Assessment/Plan * pt has had hgb in high 8s and low 9s as per pt's heme/onc * Reticulocyte count: 4.8 * Reticulocyte index: 0.37-->hypoproliferation * Iron: 29, TIBC: 274, iron saturation: 11, ferritin: 91.1. folate: 10.8 * positive stool occult blood * tarted on Fergon 324mg PO TID on 05/02/18 * Patient reports normal bowel movements denies GI workup * f/u GI 5) History of Stage 4 breast cancer with mets to the lung Assessment/Plan * f/u heme/onc recs as per Dr. Duggan * CXR shows limited linear atelectasis left base with rounded mass questioned at lateral right subpleural space. Postop changes to right apex. * Held decadron 8 mg PO BID 6) Hx of Hypertension Assessment/Plan * continue home Atenolol 25 mg PO daily * hold Losatran/HTCZ due to renal injury 7) Hx of pulmonary embolism Assessment/Plan * Switch from Xarelto to Eliquis * Patient is on Eliquis 2.5mg PO BID 8) PPX/Diet * SCDs, chemical VTE ppx contraindicated due to pt being on Eliquis * pepcid 20mg PO daily * renal diet, mod carb, heart healthy Disposition: pending GI evaluation. Renal function continues to improve while on IV fluids.
--- NOTE | 2018-05-05 12:55 | CP.PCM.CON ---
<Norbert Dumont - Last Filed: 05/05/18 13:01> History of Present Illness - History of Present Illness History of Present Illness: PGY-4 GI Fellow Consult Note Pt is a 67 yo Hisp Female with Stage IV Breast CA with met to lungs (on chemo, steroids), PE on AC (rivaroxaban -> apixaban this admission) who was admitted on 05/01/18 due to SAGE and dyspnea on exertion. Renal function had been slowly improving since admission. Hgb was noted to be 8.1 (last values ~12, but was ~8 prior) and occult blood was positive; therefore, GI consulted for further evaluation. During my encounter, patient was sitting in bedside chair in [facility]. She states that she has not noticed any blood in her stool. States she moves her bowels nearly everyday with ease and that stool is formed brown. She states that she had a Colonoscopy about 7-8 yrs ago and was told that everything was normal other than hemorrhoids and to repeat study in 10 years. She denies any abdominal pain, N/V, dysphagia, weight loss, melena nor hematochezia. 12 point ROS negative other than stated above MHx: PMH of PE (on Xarelto 20 mg PO daily), HTN, DM, stage 4 breast cancer with mets to the lung (Her2+, ER+) SurgHx: Right breast mastectomy 1994, Right lung biopsy 2-3 years ago FamHx: daughter due to sarcoma in her 30s, Brother of unknown cancer Meds: (on admission) Tradjenta 5mg PO QD, Dexamethasone 8 mg PO BID, Xarelto 20 mg PO daily (last dose taken on admission, with instructions to discontinue as per heme/onc), Losartan/HCTZ 100mg/25mg PO daily, KCl 20 meq PO daily, Atenolol 25 mg PO daily, Ondansentron HCL 4 mg PO as needed for chemo-related nausea/vomiting, Prochlor 10 mg PO as needed, Lorazepam 0.5 mg PO as need, Loperamide 2 mg PO as needed. All: see MAR. However, none as per pt. SocHx: denies history of tobacco use, denies history of etoh use, denies illicit drug. 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 Past Patient History - Infectious Disease Hx of Infectious Diseases: None - Tetanus Immunizations Tetanus Immunization: Unknown - Past Medical History & Family History Past Medical History?: Yes - Past Social History Smoking Status: Never Smoked - CARDIAC Hx Congestive Heart Failure: No Hx Hypercholesterolemia: No Hx Hypertension: Yes - PULMONARY Hx Chronic Obstructive Pulmonary Disease (COPD): No - NEUROLOGICAL HX Cerebrovascular Accident: No - HEENT Hx HEENT Problems: No - RENAL Hx Chronic Kidney Disease: No - ENDOCRINE/METABOLIC Hx Hypothyroidism: No - HEMATOLOGICAL/ONCOLOGICAL Hx Blood Disorders: Yes Hx Blood Transfusions: Yes (POST OP 20 YRS AGO ) Hx Blood Transfusion Reaction: No Hx Cancer: Yes (BREAST CA) Hx Chemotherapy: Yes Hx Metastesis: Yes Other/Comment: LUNG CANCER - INTEGUMENTARY Hx Dermatological Problems: No - MUSCULOSKELETAL/RHEUMATOLOGICAL Hx Arthritis: No Hx Rheumatoid Arthritis: No - GASTROINTESTINAL Hx Gastrointestinal Disorders: No - GENITOURINARY/GYNECOLOGICAL Hx Genitourinary Disorders: No - PSYCHIATRIC Hx Substance Use: No - SURGICAL HISTORY Hx Appendectomy: Yes - ANESTHESIA Hx Anesthesia: Yes Hx Anesthesia Reactions: No Hx Malignant Hyperthermia: No Meds Allergies/Adverse Reactions: Allergies Allergy/AdvReac Type Severity Reaction Status Date / Time silver Allergy RASH Verified 05/01/18 11:28 [From Tegaderm AG Mesh] iodixanol [From Visipaque] AdvReac RASH Verified 05/01/18 11:28 chlora Allergy Intermediate RASH Uncoded 05/01/18 11:28 contrast Allergy RASH Uncoded 05/01/18 11:28 - Medications Medications: Current Medications Apixaban (Eliquis) 2.5 mg PO Q12 [facility] Last Admin: 05/05/18 09:25 Dose: 2.5 mg Atenolol (Tenormin) 25 mg PO DAILY [facility] Last Admin: 05/05/18 09:25 Dose: 25 mg Benzonatate (Tessalon Perles) 100 mg PO TID [facility] Last Admin: 05/05/18 10:05 Dose: 100 mg Dexamethasone (Decadron) 8 mg PO BID [facility] Last Admin: 05/02/18 09:51 Dose: Not Given Docusate Sodium (Colace) 100 mg PO BID [facility] Last Admin: 05/05/18 09:24 Dose: 100 mg Ferrous Gluconate (Fergon) 324 mg PO TID [facility] Last Admin: 05/05/18 09:25 Dose: 324 mg Guaifenesin (Robitussin) 100 mg PO Q4H PRN PRN Reason: Cough Last Admin: 05/05/18 09:29 Dose: 100 mg Sodium Chloride (Sodium Chloride 0.9%) 1,000 mls @ 100 mls/hr IV .Q10H [facility] Last Admin: 05/05/18 09:31 Dose: Not Given Lorazepam (Ativan) 0.5 mg PO TID PRN PRN Reason: Anxiety Ondansetron HCl (Zofran Tab) 4 mg PO Q6H PRN PRN Reason: Nausea/Vomiting Saccharomyces Boulardii (Florastor) 250 mg PO BID [facility] Last Admin: 05/05/18 09:25 Dose: 250 mg Vitamin B Complex/Vit C/Folic Acid (Nephro-Aki) 1 tab PO 0800 [facility] Last Admin: 05/05/18 09:25 Dose: 1 tab Physical Exam - Constitutional Appears: Well, No Acute Distress Additional comments: hair loss - Head Exam Head Exam: ATRAUMATIC, NORMOCEPHALIC Additional comments: hair loss - Eye Exam Eye Exam: EOMI, Normal appearance. absent: Conjunctival injection - ENT Exam ENT Exam: Mucous Membranes Moist. absent: Mucous Membranes Dry, Normal External Ear Exam - Respiratory Exam Respiratory Exam: Clear to Auscultation Bilateral, NORMAL BREATHING PATTERN. absent: Accessory Muscle Use, Respiratory Distress - Cardiovascular Exam Cardiovascular Exam: REGULAR RHYTHM, RRR - GI/Abdominal Exam GI & Abdominal Exam: Normal Bowel Sounds, Soft. absent: Bruit, Diminished Bowel Sounds, Distended, Firm, Guarding, Hernia, Hyperactive Bowel Sounds, Hypoactive Bowel Sounds, Mass, Organomegaly, Pulsatile Mass, Rebound, Rigid, Tenderness - Rectal Exam Rectal Exam: NORMAL INSPECTION Additional comments: No stool in rectal vault (pt stated recently defecated with brown stool), external hemorrhoid at 7 o'clock - Neurological Exam Neurological exam: Alert, CN II-XII Intact, Oriented x3 - Psychiatric Exam Psychiatric exam: Normal Affect, Normal Mood - Skin Skin Exam: Normal Color, Warm Results - Vital Signs Recent Vital Signs: Last Vital Signs Temp 98.4 F 05/05/18 10:00 Pulse 95 H 05/05/18 10:00 Resp 19 05/05/18 10:00 BP 138/74 05/05/18 10:00 Pulse Ox 98 05/05/18 10:00 - Labs Result Diagrams: 05/05/18 07:21 05/05/18 07:21 Labs: Laboratory Results - last 24 hr 05/04/18 05/04/18 05/04/18 11:10 16:22 21:22 WBC RBC Hgb Hct MCV MCH MCHC RDW Plt Count MPV Neut % (Auto) Lymph % (Auto) [place] % (Auto) Eos % (Auto) Baso % (Auto) Neut # (Auto) Lymph # (Auto) [place] # (Auto) Eos # (Auto) Baso # (Auto) Sodium Potassium Chloride Carbon Dioxide Anion Gap BUN Creatinine Est GFR ( Amer) Est GFR (Non-Af Amer) POC Glucose (mg/dL) 106 131 H 101 Random Glucose Calcium Phosphorus Magnesium Total Bilirubin AST ALT Alkaline Phosphatase Total Protein Albumin Globulin Albumin/Globulin Ratio 05/05/18 05/05/18 05/05/18 07:14 07:21 07:21 WBC 4.9 RBC 2.94 L Hgb 8.9 L Hct 26.2 L MCV 89.1 MCH 30.1 MCHC 33.7 RDW 18.4 H Plt Count 253 MPV 7.8 Neut % (Auto) 59.1 Lymph % (Auto) 23.0 [place] % (Auto) 14.8 H Eos % (Auto) 2.2 Baso % (Auto) 0.9 Neut # (Auto) 2.9 Lymph # (Auto) 1.1 [place] # (Auto) 0.7 Eos # (Auto) 0.1 Baso # (Auto) 0.0 Sodium 140 Potassium 3.6 Chloride 109 H Carbon Dioxide 24 Anion Gap 11 BUN 18 H Creatinine 1.4 H Est GFR ( Amer) 45 Est GFR (Non-Af Amer) 37 POC Glucose (mg/dL) 104 Random Glucose 95 Calcium 8.6 Phosphorus 3.5 Magnesium 1.6 Total Bilirubin 0.3 AST 15 ALT 18 Alkaline Phosphatase 50 Total Protein 5.5 L Albumin 2.8 L Globulin 2.7 Albumin/Globulin Ratio 1.0 05/05/18 11:07 WBC RBC Hgb Hct MCV MCH MCHC RDW Plt Count MPV Neut % (Auto) Lymph % (Auto) [place] % (Auto) Eos % (Auto) Baso % (Auto) Neut # (Auto) Lymph # (Auto) [place] # (Auto) Eos # (Auto) Baso # (Auto) Sodium Potassium Chloride Carbon Dioxide Anion Gap BUN Creatinine Est GFR ( Amer) Est GFR (Non-Af Amer) POC Glucose (mg/dL) 102 Random Glucose Calcium Phosphorus Magnesium Total Bilirubin AST ALT Alkaline Phosphatase Total Protein Albumin Globulin Albumin/Globulin Ratio Assessment & Plan - Assessment and Plan (Free Text) Assessment: 67 yo Hisp Female with Stage IV Breast CA and PE on anticoagulation presenting with SAGE, found to have low Hgb and FOBT + stool. # Acute on Chronic Normocytic Anemia, FOBT +: Likely multifatorial from chronic disease and component of iron deficiency. While FOBT is positive, could be related to know hemorrhoids. Pt with formed brown stools; no sign or symptoms of active GI bleed. Has risk factors of anticoagulation use for PE and steroids for Breast CA regimen placing at risk for bleeding in GI tract. Pt with CSPY ~7-8 years ago per her report was normal other than hemorrhoids. Hgb stable and responded appropriately to blood transfusion. Plan: - No active GI bleeding - PPI daily to prevent PUD given steroid and AC use - Recommend outpatient follow-up with previous GI to discuss repeat EGD+CSPY evaluation after goals of care discussion given ongoing treatment for Stage IV Breast Cancer. Pt discussed with Dr. Yoder; see attestation for further recs/changes. Thank you for the consult. Will sign off. Please page if questions. <Callum Yoder - Last Filed: 05/05/18 13:58> Meds - Medications Medications: Current Medications Apixaban (Eliquis) 2.5 mg PO Q12 [facility] Last Admin: 05/05/18 09:25 Dose: 2.5 mg Atenolol (Tenormin) 25 mg PO DAILY [facility] Last Admin: 05/05/18 09:25 Dose: 25 mg Benzonatate (Tessalon Perles) 100 mg PO TID [facility] Last Admin: 05/05/18 13:50 Dose: 100 mg Dexamethasone (Decadron) 8 mg PO BID [facility] Last Admin: 05/02/18 09:51 Dose: Not Given Docusate Sodium (Colace) 100 mg PO BID [facility] Last Admin: 05/05/18 09:24 Dose: 100 mg Ferrous Gluconate (Fergon) 324 mg PO TID [facility] Last Admin: 05/05/18 09:25 Dose: 324 mg Guaifenesin (Robitussin) 100 mg PO Q4H PRN PRN Reason: Cough Last Admin: 05/05/18 09:29 Dose: 100 mg Sodium Chloride (Sodium Chloride 0.9%) 1,000 mls @ 100 mls/hr IV .Q10H [facility] Last Admin: 05/05/18 09:31 Dose: Not Given Lorazepam (Ativan) 0.5 mg PO TID PRN PRN Reason: Anxiety Ondansetron HCl (Zofran Tab) 4 mg PO Q6H PRN PRN Reason: Nausea/Vomiting Saccharomyces Boulardii (Florastor) 250 mg PO BID [facility] Last Admin: 05/05/18 09:25 Dose: 250 mg Vitamin B Complex/Vit C/Folic Acid (Nephro-Aki) 1 tab PO 0800 [facility] Last Admin: 05/05/18 09:25 Dose: 1 tab Results - Vital Signs Recent Vital Signs: Last Vital Signs Temp 98.4 F 05/05/18 10:00 Pulse 95 H 05/05/18 10:00 Resp 19 05/05/18 10:00 BP 138/74 05/05/18 10:00 Pulse Ox 98 05/05/18 10:00 - Labs Result Diagrams: 05/05/18 07:21 05/05/18 07:21 Labs: Laboratory Results - last 24 hr 05/04/18 05/04/18 05/04/18 11:10 16:22 21:22 WBC RBC Hgb Hct MCV MCH MCHC RDW Plt Count MPV Neut % (Auto) Lymph % (Auto) [place] % (Auto) Eos % (Auto) Baso % (Auto) Neut # (Auto) Lymph # (Auto) [place] # (Auto) Eos # (Auto) Baso # (Auto) Sodium Potassium Chloride Carbon Dioxide Anion Gap BUN Creatinine Est GFR ( Amer) Est GFR (Non-Af Amer) POC Glucose (mg/dL) 106 131 H 101 Random Glucose Calcium Phosphorus Magnesium Total Bilirubin AST ALT Alkaline Phosphatase Total Protein Albumin Globulin Albumin/Globulin Ratio 05/05/18 05/05/18 05/05/18 07:14 07:21 07:21 WBC 4.9 RBC 2.94 L Hgb 8.9 L Hct 26.2 L MCV 89.1 MCH 30.1 MCHC 33.7 RDW 18.4 H Plt Count 253 MPV 7.8 Neut % (Auto) 59.1 Lymph % (Auto) 23.0 [place] % (Auto) 14.8 H Eos % (Auto) 2.2 Baso % (Auto) 0.9 Neut # (Auto) 2.9 Lymph # (Auto) 1.1 [place] # (Auto) 0.7 Eos # (Auto) 0.1 Baso # (Auto) 0.0 Sodium 140 Potassium 3.6 Chloride 109 H Carbon Dioxide 24 Anion Gap 11 BUN 18 H Creatinine 1.4 H Est GFR ( Amer) 45 Est GFR (Non-Af Amer) 37 POC Glucose (mg/dL) 104 Random Glucose 95 Calcium 8.6 Phosphorus 3.5 Magnesium 1.6 Total Bilirubin 0.3 AST 15 ALT 18 Alkaline Phosphatase 50 Total Protein 5.5 L Albumin 2.8 L Globulin 2.7 Albumin/Globulin Ratio 1.0 05/05/18 11:07 WBC RBC Hgb Hct MCV MCH MCHC RDW Plt Count MPV Neut % (Auto) Lymph % (Auto) [place] % (Auto) Eos % (Auto) Baso % (Auto) Neut # (Auto) Lymph # (Auto) [place] # (Auto) Eos # (Auto) Baso # (Auto) Sodium Potassium Chloride Carbon Dioxide Anion Gap BUN Creatinine Est GFR ( Amer) Est GFR (Non-Af Amer) POC Glucose (mg/dL) 102 Random Glucose Calcium Phosphorus Magnesium Total Bilirubin AST ALT Alkaline Phosphatase Total Protein Albumin Globulin Albumin/Globulin Ratio Attending/Attestation - Attestation I have personally seen and examined this patient.: Yes I have fully participated in the care of the patient.: Yes I have reviewed all pertinent clinical information: Yes Notes (Text): 05/05/18 13:57 Chart reviewed. The patient was seen and examined. Assessment and recommendations were discussed with Dr. Dumont and documented above.
--- NOTE | 2018-05-05 16:21 | CP.PCM.DIS ---
<Sindy Benito - Last Filed: 05/05/18 16:44> Provider - Provider Date of Admission: 05/01/18 13:12 Attending physician: Britany Gallego DO Consults: Heme/onc: Usha Duggan Nephro: Judy GI: Brandin Time Spent in preparation of Discharge (in minutes): 29 Diagnosis - Discharge Diagnosis (1) Renal failure (ARF), acute on chronic Status: Acute (2) Hx of breast cancer Status: Chronic Hospital Course - Lab Results Lab Results: Micro Results 05/01/18 21:43 Blood-Venous Blood Culture - Preliminary NO GROWTH AFTER 3 DAYS 05/01/18 16:59 Blood-Venous Blood Culture - Preliminary NO GROWTH AFTER 3 DAYS 05/01/18 14:50 Urine,Clean Catch Urine Culture - Final No Growth (<1,000 CFU/ML) Most Recent Lab Values WBC 4.9 K/uL (4.8-10.8) 05/05/18 07:21 RBC 2.94 Mil/uL (3.80-5.20) L 05/05/18 07:21 Hgb 8.9 g/dL (11.0-16.0) L 05/05/18 07:21 Hct 26.2 % (34.0-47.0) L 05/05/18 07:21 MCV 89.1 fL (81.0-99.0) 05/05/18 07:21 MCH 30.1 pg (27.0-31.0) 05/05/18 07:21 MCHC 33.7 g/dL (33.0-37.0) 05/05/18 07:21 RDW 18.4 % (11.5-14.5) H 05/05/18 07:21 Plt Count 253 K/uL (130-400) 05/05/18 07:21 MPV 7.8 fL (7.2-11.7) 05/05/18 07:21 Neut % (Auto) 59.1 % (50.0-75.0) 05/05/18 07:21 Lymph % (Auto) 23.0 % (20.0-40.0) 05/05/18 07:21 [place] % (Auto) 14.8 % (0.0-10.0) H 05/05/18 07:21 Eos % (Auto) 2.2 % (0.0-4.0) 05/05/18 07:21 Baso % (Auto) 0.9 % (0.0-2.0) 05/05/18 07:21 Neut # (Auto) 2.9 K/uL (1.8-7.0) 05/05/18 07:21 Lymph # (Auto) 1.1 K/uL (1.0-4.3) 05/05/18 07:21 [place] # (Auto) 0.7 K/uL (0.0-0.8) 05/05/18 07:21 Eos # (Auto) 0.1 K/uL (0.0-0.7) 05/05/18 07:21 Baso # (Auto) 0.0 K/uL (0.0-0.2) 05/05/18 07:21 Retic Count 4.8 % (0.5-1.5) H 05/02/18 06:30 PT 17.2 SECONDS (9.7-12.2) H 05/02/18 06:30 INR 1.6 05/02/18 06:30 APTT 30 SECONDS (21-34) 05/02/18 06:30 Sodium 140 mmol/L (132-148) 05/05/18 07:21 Potassium 3.6 mmol/L (3.6-5.2) 05/05/18 07:21 Chloride 109 mmol/L (98-107) H 05/05/18 07:21 Carbon Dioxide 24 mmol/L (22-30) 05/05/18 07:21 Anion Gap 11 (10-20) 05/05/18 07:21 BUN 18 mg/dL (7-17) H 05/05/18 07:21 Creatinine 1.4 mg/dL (0.7-1.2) H 05/05/18 07:21 Est GFR ( Amer) 45 05/05/18 07:21 Est GFR (Non-Af Amer) 37 05/05/18 07:21 POC Glucose (mg/dL) 102 mg/dL (65-110) 05/05/18 11:07 Random Glucose 95 mg/dL (65-105) 05/05/18 07:21 Uric Acid 9.7 mg/dL (2.2-7.5) H 05/01/18 18:14 Calcium 8.6 mg/dl (8.6-10.4) 05/05/18 07:21 Phosphorus 3.5 mg/dL (2.5-4.5) 05/05/18 07:21 Magnesium 1.6 mg/dL (1.6-2.3) 05/05/18 07:21 Iron 29 ug/dL (37-170) L 05/01/18 16:59 TIBC 274 ug/dL (250-450) 05/01/18 16:59 % Saturation 11 (20-55) L 05/01/18 16:59 Ferritin 91.1 ng/mL 05/01/18 16:59 Total Bilirubin 0.3 mg/dL (0.2-1.3) 05/05/18 07:21 AST 15 U/L (14-36) 05/05/18 07:21 ALT 18 U/L (9-52) 05/05/18 07:21 Alkaline Phosphatase 50 U/L (38-126) 05/05/18 07:21 Total Creatine Kinase 73 U/L (30-135) 05/01/18 18:14 Total Protein 5.5 g/dL (6.3-8.3) L 05/05/18 07:21 Albumin 2.8 g/dL (3.5-5.0) L 05/05/18 07:21 Globulin 2.7 gm/dL (2.2-3.9) 05/05/18 07:21 Albumin/Globulin Ratio 1.0 (1.0-2.1) 05/05/18 07:21 25-OH Vitamin D Total 30.4 NG/ML (30.0-100.0) 05/02/18 06:30 Folate 10.8 ng/mL 05/01/18 16:59 PTH Intact Whole Molec 153 pg/mL (14-64) H 05/01/18 16:59 Urine Color Straw (YELLOW) 05/01/18 21:43 Urine Clarity Clear (Clear) 05/01/18 21:43 Urine pH 5.0 (5.0-8.0) 05/01/18 21:43 Ur Specific [place] 1.004 (1.003-1.030) 05/01/18 21:43 Urine Protein Negative mg/dL (NEGATIVE) 05/01/18 21:43 Urine Glucose (UA) Normal mg/dL (Normal) 05/01/18 21:43 Urine Ketones Negative mg/dL (NEGATIVE) 05/01/18 21:43 Urine Blood Negative (NEGATIVE) 05/01/18 21:43 Urine Nitrate Negative (NEGATIVE) 05/01/18 21:43 Urine Bilirubin Negative (NEGATIVE) 05/01/18 21:43 Urine Urobilinogen Normal mg/dL (0.2-1.0) 05/01/18 21:43 Ur Leukocyte Esterase Neg Tahir/uL (Negative) 05/01/18 21:43 Urine WBC (Auto) 3 /hpf (0-5) 05/01/18 21:43 Urine RBC (Auto) < 1 /hpf (0-3) 05/01/18 21:43 Ur Squamous Epith Cells < 1 /hpf (0-5) 05/01/18 21:43 Urine Bacteria Rare (<OCC) 05/01/18 21:43 Ur Random Creatinine 66 mg/dL (20-320) 05/01/18 21:45 Ur Random Sodium 25 mmol/L 05/01/18 21:43 Urine Total Volume 0.4 mg/dL 05/01/18 21:45 Microalb/Creat Ratio 5 (<30) 05/01/18 21:45 Stool Occult Blood Positive (NEGATIVE) H 05/04/18 09:21 Blood Type B POSITIVE 05/03/18 14:49 Antibody Screen Negative 05/03/18 14:49 Discharge Exam - Head Exam Head Exam: ATRAUMATIC, NORMOCEPHALIC Discharge Plan - Discharge Medications Prescriptions: RX: Ferrous Gluconate [Fergon] 324 mg PO TID #90 tab - Follow Up Plan Condition: STABLE Disposition: HOME/ ROUTINE Instructions: Acute Kidney Failure, Acute Kidney Failure (DC), Renal Failure Diet (DC) Additional Instructions: Patient is stable for discharge home. Hemoglobin is stable. Kidney function is stable. Patient is advised to continue with current home medications as prescribed. Patient advised to follow up with PMD within 1 week of discharge. Patient is also advised to follow up with GI for repeat endoscopy and colonoscopy. to Patient should return to ED with any worsening of symptoms. Referrals: Horace Ghotra MD [Staff Provider] - <Britany Gallego V - Last Filed: 05/06/18 14:09> Provider - Provider Date of Admission: 05/01/18 13:12 Attending physician: Britany Gallego DO Diagnosis - Discharge Diagnosis (1) Renal failure (ARF), acute on chronic Status: Acute (2) Hx of breast cancer Status: Chronic (3) Anemia Status: Acute Priority: High (4) HTN (hypertension) Status: Chronic (5) Hyperlipidemia Status: Chronic Hospital Course - Lab Results Lab Results: Micro Results 05/01/18 21:43 Blood-Venous Blood Culture - Preliminary NO GROWTH AFTER 4 DAYS 05/01/18 16:59 Blood-Venous Blood Culture - Preliminary NO GROWTH AFTER 4 DAYS 05/01/18 14:50 Urine,Clean Catch Urine Culture - Final No Growth (<1,000 CFU/ML) Most Recent Lab Values WBC 4.9 K/uL (4.8-10.8) 05/05/18 07:21 RBC 2.94 Mil/uL (3.80-5.20) L 05/05/18 07:21 Hgb 8.9 g/dL (11.0-16.0) L 05/05/18 07:21 Hct 26.2 % (34.0-47.0) L 05/05/18 07:21 MCV 89.1 fL (81.0-99.0) 05/05/18 07:21 MCH 30.1 pg (27.0-31.0) 05/05/18 07:21 MCHC 33.7 g/dL (33.0-37.0) 05/05/18 07:21 RDW 18.4 % (11.5-14.5) H 05/05/18 07:21 Plt Count 253 K/uL (130-400) 05/05/18 07:21 MPV 7.8 fL (7.2-11.7) 05/05/18 07:21 Neut % (Auto) 59.1 % (50.0-75.0) 05/05/18 07:21 Lymph % (Auto) 23.0 % (20.0-40.0) 05/05/18 07:21 [place] % (Auto) 14.8 % (0.0-10.0) H 05/05/18 07:21 Eos % (Auto) 2.2 % (0.0-4.0) 05/05/18 07:21 Baso % (Auto) 0.9 % (0.0-2.0) 05/05/18 07:21 Neut # (Auto) 2.9 K/uL (1.8-7.0) 05/05/18 07:21 Lymph # (Auto) 1.1 K/uL (1.0-4.3) 05/05/18 07:21 [place] # (Auto) 0.7 K/uL (0.0-0.8) 05/05/18 07:21 Eos # (Auto) 0.1 K/uL (0.0-0.7) 05/05/18 07:21 Baso # (Auto) 0.0 K/uL (0.0-0.2) 05/05/18 07:21 Retic Count 4.8 % (0.5-1.5) H 05/02/18 06:30 PT 17.2 SECONDS (9.7-12.2) H 05/02/18 06:30 INR 1.6 05/02/18 06:30 APTT 30 SECONDS (21-34) 05/02/18 06:30 Sodium 140 mmol/L (132-148) 05/05/18 07:21 Potassium 3.6 mmol/L (3.6-5.2) 05/05/18 07:21 Chloride 109 mmol/L (98-107) H 05/05/18 07:21 Carbon Dioxide 24 mmol/L (22-30) 05/05/18 07:21 Anion Gap 11 (10-20) 05/05/18 07:21 BUN 18 mg/dL (7-17) H 05/05/18 07:21 Creatinine 1.4 mg/dL (0.7-1.2) H 05/05/18 07:21 Est GFR ( Amer) 45 05/05/18 07:21 Est GFR (Non-Af Amer) 37 05/05/18 07:21 POC Glucose (mg/dL) 100 mg/dL (65-110) 05/05/18 16:42 Random Glucose 95 mg/dL (65-105) 05/05/18 07:21 Uric Acid 9.7 mg/dL (2.2-7.5) H 05/01/18 18:14 Calcium 8.6 mg/dl (8.6-10.4) 05/05/18 07:21 Phosphorus 3.5 mg/dL (2.5-4.5) 05/05/18 07:21 Magnesium 1.6 mg/dL (1.6-2.3) 05/05/18 07:21 Iron 29 ug/dL (37-170) L 05/01/18 16:59 TIBC 274 ug/dL (250-450) 05/01/18 16:59 % Saturation 11 (20-55) L 05/01/18 16:59 Ferritin 91.1 ng/mL 05/01/18 16:59 Total Bilirubin 0.3 mg/dL (0.2-1.3) 05/05/18 07:21 AST 15 U/L (14-36) 05/05/18 07:21 ALT 18 U/L (9-52) 05/05/18 07:21 Alkaline Phosphatase 50 U/L (38-126) 05/05/18 07:21 Total Creatine Kinase 73 U/L (30-135) 05/01/18 18:14 Total Protein 5.5 g/dL (6.3-8.3) L 05/05/18 07:21 Albumin 2.8 g/dL (3.5-5.0) L 05/05/18 07:21 Globulin 2.7 gm/dL (2.2-3.9) 05/05/18 07:21 Albumin/Globulin Ratio 1.0 (1.0-2.1) 05/05/18 07:21 25-OH Vitamin D Total 30.4 NG/ML (30.0-100.0) 05/02/18 06:30 Folate 10.8 ng/mL 05/01/18 16:59 PTH Intact Whole Molec 153 pg/mL (14-64) H 05/01/18 16:59 Urine Color Straw (YELLOW) 05/01/18 21:43 Urine Clarity Clear (Clear) 05/01/18 21:43 Urine pH 5.0 (5.0-8.0) 05/01/18 21:43 Ur Specific [place] 1.004 (1.003-1.030) 05/01/18 21:43 Urine Protein Negative mg/dL (NEGATIVE) 05/01/18 21:43 Urine Glucose (UA) Normal mg/dL (Normal) 05/01/18 21:43 Urine Ketones Negative mg/dL (NEGATIVE) 05/01/18 21:43 Urine Blood Negative (NEGATIVE) 05/01/18 21:43 Urine Nitrate Negative (NEGATIVE) 05/01/18 21:43 Urine Bilirubin Negative (NEGATIVE) 05/01/18 21:43 Urine Urobilinogen Normal mg/dL (0.2-1.0) 05/01/18 21:43 Ur Leukocyte Esterase Neg Tahir/uL (Negative) 05/01/18 21:43 Urine WBC (Auto) 3 /hpf (0-5) 05/01/18 21:43 Urine RBC (Auto) < 1 /hpf (0-3) 05/01/18 21:43 Ur Squamous Epith Cells < 1 /hpf (0-5) 05/01/18 21:43 Urine Bacteria Rare (<OCC) 05/01/18 21:43 Ur Random Creatinine 66 mg/dL (20-320) 05/01/18 21:45 Ur Random Sodium 25 mmol/L 05/01/18 21:43 Urine Total Volume 0.4 mg/dL 05/01/18 21:45 Microalb/Creat Ratio 5 (<30) 05/01/18 21:45 Stool Occult Blood Positive (NEGATIVE) H 05/04/18 09:21 Serum Immunofixation Not detected (Not Detected) 05/02/18 06:30 Blood Type B POSITIVE 05/03/18 14:49 Antibody Screen Negative 05/03/18 14:49 Attending/Attestation - Attestation I have personally seen and examined this patient.: Yes I have fully participated in the care of the patient.: Yes I have reviewed all pertinent clinical information, including history, physical exam and plan: Yes
[2018-05-05 17:01] VITALS: BP 129/73; PULSE 80; RESP 20; TEMP 97.9; O2SAT 97
== END 2018-05-05 18:50 | disposition home or self-care (01) | DRG 683 ==
LOC: C.ER 11:02 → C.9E 13:12 → C.3T 15:24
PROVIDERS: ADMIT Hospitalist; ATTEND Hospitalist
DX: N17.0 Acute kidney failure with tubular necrosis (principal); N39.0 Urinary tract infection, site not specified; E87.4 Mixed disorder of acid-base balance; C78.00 Secondary malignant neoplasm of unspecified lung; I12.9 Hypertensive chronic kidney disease with stage 1 through stage 4 chronic kidney disease, or unspecified chronic kidney disease; N18.9 Chronic kidney disease, unspecified; Z17.0 Estrogen receptor positive status [ER+]; Z85.3 Personal history of malignant neoplasm of breast; E78.5 Hyperlipidemia, unspecified; E11.22 Type 2 diabetes mellitus with diabetic chronic kidney disease; E86.0 Dehydration; Z90.11 Acquired absence of right breast and nipple; D64.9 Anemia, unspecified; Z86.711 Personal history of pulmonary embolism